=== PATIENT | female | born 1960 | race American Indian/Alaskan Native ===

== ENCOUNTER 2018-04-06 21:16 | Inpatient (IN) | payer MEDICARE ==
[2018-04-06] MEDS ORDERED: PROVENTIL IH ONE ×3 (21:38→21:50)
[2018-04-06] MEDS ORDERED: ATROVENT IH ONE (21:38)
[2018-04-06] MEDS ORDERED: LASIX IV ONE (21:52)
[2018-04-06] MEDS ORDERED: MAGNESIUM SULFATE 2GM/50ML 2 GM/50 ML BAG IV ONE (21:58)
--- NOTE | 2018-04-06 21:58 | Emergency Department Report ---
ED Shortness of Breath HPI - General Chief Complaint: Dyspnea/Respdistress Stated Complaint: TROUBLE BREATHING Time Seen by Provider: 04/06/18 21:45 Source: patient Mode of arrival: Ambulatory Limitations: No Limitations - History of Present Illness Initial Comments: Mrs. Fletcher is a 57-year-old female history of CHF, coronary artery disease status post 2 vessel CABG in right valve replacement. She also has a history of COPD and continued tobacco use. She has severe shortness of breath. According to triage oxygen saturation, she was 88% on room air with severe work of breathing. Denies any pain. She is not oxygen dependent. According to echocardiogram per EMR, ejection fraction 15% MD Complaint: shortness of breath -: days(s) (1) Severity: severe Known History Of: COPD, other (CHF) Context: other (continued tobacco use) Associated Symptoms: cough - Related Data Home Oxygen Therapy: No Previous Rx's Medication Instructions Recorded Last Taken Type Allopurinol [Zyloprim] 100 mg PO QDAY #30 tablet 01/04/18 Unknown Rx Arformoterol Nebu [Brovana Nebu] 15 mcg IH Q12HRT #1 ml 01/04/18 Unknown Rx Aspirin [Aspirin TAB] 325 mg PO QDAY #30 tablet 01/04/18 Unknown Rx Budesonide [Pulmicort Respules] 0.5 mg IH Q12HRT #1 nebu 01/04/18 Unknown Rx Digoxin [Lanoxin] 0.25 mg PO DAILY #30 tablet 01/04/18 Unknown Rx Furosemide [Lasix TAB] 40 mg PO BID #120 tablet 01/04/18 Unknown Rx Lisinopril [Zestril TAB] 2.5 mg PO QDAY #30 tablet 01/04/18 Unknown Rx Metoprolol [Lopressor TAB] 50 mg PO BID #60 tablet 01/04/18 Unknown Rx Potassium Chloride [K-Dur] 20 meq PO Q12H #30 tablet 01/04/18 Unknown Rx Prednisone [predniSONE 5 mg (6-Day 5 mg PO .TAPER #1 tab.ds.pk 01/04/18 Unknown Rx Pack, 21 Tabs)] ALBUTEROL Inhaler [ProAir HFA 2 puff IH QID PRN #2 can 01/06/18 Unknown Rx Inhaler] Allergies Allergy/AdvReac Type Severity Reaction Status Date / Time Penicillins Allergy Unknown Verified 03/22/14 02:56 ED Review of Systems ROS: Stated complaint: TROUBLE BREATHING Other details as noted in HPI Comment: All other systems reviewed and negative Constitutional: denies: fever, malaise Respiratory: cough Cardiovascular: denies: chest pain ED Past Medical Hx - Past Medical History Hx Hypertension: Yes (2002) Hx Heart Attack/AMI: Yes Hx Congestive Heart Failure: Yes Hx Asthma: No Hx COPD: Yes Hx HIV: Yes Additional medical history: Mitral Valve repair, Open Heart surgery 2 vessel, Defibrillator - Surgical History Hx Open Heart Surgery: Yes Hx Internal Defibrillator: Yes Hx Cholecystectomy: Yes Additional Surgical History: mitral valve repair, - Social History Smoking Status: Current Every Day Smoker - Medications Home Medications: Home Medications Medication Instructions Recorded Confirmed Last Taken Type Allopurinol [Zyloprim] 100 mg PO QDAY #30 tablet 01/04/18 Unknown Rx Arformoterol Nebu [Brovana Nebu] 15 mcg IH Q12HRT #1 ml 01/04/18 Unknown Rx Aspirin [Aspirin TAB] 325 mg PO QDAY #30 tablet 01/04/18 Unknown Rx Budesonide [Pulmicort Respules] 0.5 mg IH Q12HRT #1 nebu 01/04/18 Unknown Rx Digoxin [Lanoxin] 0.25 mg PO DAILY #30 tablet 01/04/18 Unknown Rx Furosemide [Lasix TAB] 40 mg PO BID #120 tablet 01/04/18 Unknown Rx Lisinopril [Zestril TAB] 2.5 mg PO QDAY #30 tablet 01/04/18 Unknown Rx Metoprolol [Lopressor TAB] 50 mg PO BID #60 tablet 01/04/18 Unknown Rx Potassium Chloride [K-Dur] 20 meq PO Q12H #30 tablet 01/04/18 Unknown Rx Prednisone [predniSONE 5 mg (6-Day 5 mg PO .TAPER #1 tab.ds.pk 01/04/18 Unknown Rx Pack, 21 Tabs)] ALBUTEROL Inhaler [ProAir HFA 2 puff IH QID PRN #2 can 01/06/18 Unknown Rx Inhaler] ED Physical Exam - General Limitations: No Limitations General appearance: alert, in distress, other (severe work of breathing) - Head Head exam: Present: atraumatic, normocephalic - Eye Eye exam: Present: normal appearance - ENT ENT exam: Present: normal exam - Neck Neck exam: Present: normal inspection. Absent: tenderness, meningismus - Respiratory Respiratory exam: Present: wheezes, accessory muscle use, decreased breath sounds, prolonged expiratory - Cardiovascular Cardiovascular Exam: Present: normal rhythm, tachycardia, normal heart sounds - GI/Abdominal GI/Abdominal exam: Present: soft. Absent: distended, tenderness, guarding, rebound - Extremities Exam Extremities exam: Present: normal inspection, full ROM. Absent: pedal edema - Neurological Exam Neurological exam: Present: alert, altered - Psychiatric Psychiatric exam: Present: normal affect, anxious - Skin Skin exam: Present: warm, dry, intact, normal color - Other Other exam information: Sternotomy scar present, AICD pack without tenderness or erythema surgical scar overlying ED Course Vital Signs 04/06/18 04/06/18 04/06/18 21:15 21:29 21:31 Temperature 98.0 F 98 F Pulse Rate 123 H 122 H 112 H Pulse Rate [ Anterior Bilateral Throughout] Respiratory 24 28 H 17 Rate Respiratory Rate [Anterior Bilateral Throughout] Blood Pressure 168/104 168/104 O2 Sat by Pulse 91 88 95 Oximetry 04/06/18 04/06/18 04/06/18 21:45 21:49 21:54 Temperature Pulse Rate 106 H Pulse Rate [ 105 H Anterior Bilateral Throughout] Respiratory 22 20 Rate Respiratory 25 H Rate [Anterior Bilateral Throughout] Blood Pressure O2 Sat by Pulse 97 Oximetry - Reevaluation(s) Reevaluation #1: 04/06/18 22:02 Patient required noninvasive positive pressure ventilation with BiPAP immediately upon arrival. I discussed care with nurse and respiratory therapist. I reviewed her electronic record. Reevaluation #2: 04/06/18 23:35 I reassessed Ms. Fletcher. She still had decreased breath sounds. Blood gas on room air revealed hypoxia and mild hypercapnia will continue BiPAP. ED Medical Decision Making - Lab Data Result diagrams: 04/06/18 22:09 04/06/18 22:09 - EKG Data 04/06/18 21:56 Sinus tachycardia rate of 100 abnormal axis positive LVH no significant ST elevation isolated ST abnormality in lead V6 - Medical Decision Making Ms. Fletcher presents with acute respiratory failure and acute hypoxia and chronic hypercapnia; suspect largest component due to COPD. Patient does have a history of CHF with minimal pulmonary edema seen on chest x-ray. Critical Care Time: Yes (45) Critical care attestation.: If time is entered above; I have spent that time in minutes in the direct care of this critically ill patient, excluding procedure time. ED Disposition Clinical Impression: Acute respiratory failure with hypoxia, COPD with acute exacerbation, CHF ( congestive heart failure) Disposition: OP ADMIT IP TO THIS HOSP Is pt being admited?: Yes Does the pt Need Aspirin: No Condition: Stable Time of Disposition: 23:37
[2018-04-06] MEDS ORDERED: ZOFRAN ONE (22:08)
[2018-04-06 22:23] LABS: Hematocrit 53.2 % (30.3-42.9); Hemoglobin 17.4 gm/dl (10.1-14.3); Mean Corpuscular HGB Conc 33 % (30-34); Mean Corpuscular Hemoglobin 31 pg (28-32); Mean Corpuscular Volume 95 fl (79-97); Platelet Count 215 K/mm3 (140-440); Red Blood Count 5.59 M/mm3 (3.65-5.03); Red Cell Distribution Width 15.5 % (13.2-15.2)
[2018-04-06 22:32] LABS: BUN/Creatinine Ratio 19; Blood Urea Nitrogen 17 mg/dL (7-17); Calcium 8.8 mg/dL (8.4-10.2); Hemolysis Index 109
--- NOTE | 2018-04-06 22:58 | XRay Report ---
FINAL REPORT EXAM: XR CHEST 1V AP HISTORY: Dyspnea TECHNIQUE: upright single view chest PRIORS: None. FINDINGS: Cardiac silhouette is enlarged.. No focal pulmonary infiltrate is identified. No pleural fluid collection seen. Pulmonary vasculature is unremarkable. Pacemaker is present. Lead wires are intact. Lungs are hyperinflated likely reflecting underlying COPD. There is a cardiac valve prosthesis present. IMPRESSION: Findings likely reflecting underlying COPD Cardiomegaly pacemaker/AICD Cardiac valve prosthesis
[2018-04-06] MEDS ORDERED: ZOFRAN IV ONE (23:03)
[2018-04-06 23:12] LABS: Basophils % (Manual) 0 % (0.0-1.8); Total Cells Counted 100
[2018-04-06] MEDS ORDERED: LEVAQUIN 750MG/150ML 750 MG/150 ML BAG IV ONE (23:37)
[2018-04-06] MEDS ORDERED: TYLENOL PO PRN (23:57)
[2018-04-06] MEDS ORDERED: SODIUM CHLORIDE FLUSH SYRINGE 10 ML IV PRN (23:57)
--- NOTE | 2018-04-06 23:57 | History and Physical Report ---
History of Present Illness Date of examination: 04/06/18 History of present illness: 57 year with history of hypertension, HIV, CHF, coronary artery disease, COPD comes emergency room with complaints of shortness of breath that started yesterday. also complained of PND, orthopnea. Review Of Systems: Constitutional: no weight loss Ears, eyes, nose, mouth and throat: no nasal congestion, no nasal discharge, no sinus pressure, blurry vision, diplopia Neck: No neck pain or rigidity. Cardiovascular: NO palpitations Respiratory:no cough Gastrointestinal: no abdominal pain, hematochezia Genitourinary : no dysuria, frequency , hematuria Musculoskeletal: no muscle ache Integumentary: no rash, no pruritis Neurological: no parathesias, focal weakness Endocrine: no cold or heat intolerance, no polyuria or polydipsia Hematologic/Lymphatic: no easy bruising, no easy bleeding, no gland swelling Allergic/Immunologic: no urticaria, no angioedema. PAST MEDICAL HISTORY:CAD, COPD, heart failure, HIV/AIDS, hypertension PAST SURGICAL HISTORY:CABG, Other mitral valve repair, AICD FAMILY HISTORY:CVA, HTN SOCIAL HISTORY:Smokes half a pack a day, alcohol and no drugs Medications and Allergies Allergies Allergy/AdvReac Type Severity Reaction Status Date / Time Penicillins Allergy Unknown Verified 03/22/14 02:56 Home Medications Medication Instructions Recorded Confirmed Last Taken Type Allopurinol [Zyloprim] 100 mg PO QDAY #30 tablet 01/04/18 Unknown Rx Arformoterol Nebu [Brovana Nebu] 15 mcg IH Q12HRT #1 ml 01/04/18 Unknown Rx Aspirin [Aspirin TAB] 325 mg PO QDAY #30 tablet 01/04/18 Unknown Rx Budesonide [Pulmicort Respules] 0.5 mg IH Q12HRT #1 nebu 01/04/18 Unknown Rx Digoxin [Lanoxin] 0.25 mg PO DAILY #30 tablet 01/04/18 Unknown Rx Furosemide [Lasix TAB] 40 mg PO BID #120 tablet 01/04/18 Unknown Rx Lisinopril [Zestril TAB] 2.5 mg PO QDAY #30 tablet 01/04/18 Unknown Rx Metoprolol [Lopressor TAB] 50 mg PO BID #60 tablet 01/04/18 Unknown Rx Potassium Chloride [K-Dur] 20 meq PO Q12H #30 tablet 01/04/18 Unknown Rx Prednisone [predniSONE 5 mg (6-Day 5 mg PO .TAPER #1 tab.ds.pk 01/04/18 Unknown Rx Pack, 21 Tabs)] ALBUTEROL Inhaler [ProAir HFA 2 puff IH QID PRN #2 can 01/06/18 Unknown Rx Inhaler] Active Meds: Active Medications Levofloxacin/Dextrose (Levaquin 750mg/150ml) 750 mg in 150 mls @ 100 mls/hr IV ONCE ONE Stop: 04/07/18 01:06 Exam - Physical Exam Narrative exam: Gen. appearance: Patient lying in bed, no apparent distress HEENT: Normocephalic, atraumatic, pupils equally round and reactive to light, extraocular movement intact, and no sclericterus,. No JVD or thyromegaly or nodule,neck supple, no carotid bruit ,mucous membranes moist, no exudate or erythema Heart: S1, S2, regular rate and rhythm Lungs: Crackles bilaterally, breathing comfortable Abdomen: Positive bowel sounds, nontender, nondistended, no organomegaly Extremity: No edema, cyanosis, clubbing Skin: No rash, nodules, warm, dry Neuro: Oriented 3, cranial nerves II-12 intact, speech is fluent, motor and sensory intact - Constitutional Vitals: Temp Pulse Resp BP Pulse Ox 98 F 98 H 22 168/104 93 04/06/18 21:29 04/06/18 22:59 04/06/18 22:59 04/06/18 21:29 04/06/18 22:59 Results - Labs CBC & Chem 7: 04/06/18 22:09 04/06/18 22:09 Labs: Abnormal lab results 04/06/18 04/06/18 04/06/18 Range/Units 22:09 22:09 23:22 RBC 5.59 H (3.65-5.03) M/mm3 Hgb 17.4 H (10.1-14.3) gm/dl Hct 53.2 H (30.3-42.9) % RDW 15.5 H (13.2-15.2) % Seg Neuts % (Manual) 33.0 L (40.0-70.0) % Lymphocytes % (Manual) 59.0 H (13.4-35.0) % POC ABG pCO2 (35-45) POC ABG pO2 (80-105) Potassium 3.1 L (3.6-5.0) mmol/L Chloride 95.4 L (98-107) mmol/L Glucose 129 H (65-100) mg/dL NT-Pro-B Natriuret Pep 2989 H (0-900) pg/mL 04/06/18 Range/Units 23:36 RBC (3.65-5.03) M/mm3 Hgb (10.1-14.3) gm/dl Hct (30.3-42.9) % RDW (13.2-15.2) % Seg Neuts % (Manual) (40.0-70.0) % Lymphocytes % (Manual) (13.4-35.0) % POC ABG pCO2 52.5 H (35-45) POC ABG pO2 51 L (80-105) Potassium (3.6-5.0) mmol/L Chloride (98-107) mmol/L Glucose (65-100) mg/dL NT-Pro-B Natriuret Pep (0-900) pg/mL - Imaging and Cardiology EKG: image reviewed Chest x-ray: image reviewed Assessment and Plan Assessment Acute on chronic systolic heart failure COPD exacerbation Coronary artery disease Hypertension Hiv Plan Admit to medicine Diurese with IV Lasix Start BB, SAL inhibitor, aspirin Check enzymes, echo, consult cardiology Monitor I's and O's, daily weight Start high-dose steroids, nebulized treatments Continue appropriate outpatient medications DVT prophylaxis
[2018-04-07] MEDS ORDERED: PERCOCET 5/325 ONE (00:41)
[2018-04-07] MEDS: PERCOCET 5/325 PO PRN ×4 (01:11→22:38)
[2018-04-07] MEDS: DUONEB *Not for PRN Use IH SCH ×4 (03:06→20:13)
[2018-04-07 06:05] LABS: Basophils % (Auto) 0.3 % (0.0-1.8); Eosinophils % (Auto) 0.1 % (0.0-4.3); Hematocrit 47.9 % (30.3-42.9); Hemoglobin 15.4 gm/dl (10.1-14.3); Lymphocytes # (Auto) 0.6 K/mm3 (1.2-5.4); Lymphocytes % (Auto) 12.6 % (13.4-35.0); Mean Corpuscular HGB Conc 32 % (30-34); Mean Corpuscular Hemoglobin 31 pg (28-32); Mean Corpuscular Volume 96 fl (79-97); Monocytes # (Auto) 0.1 K/mm3 (0.0-0.8); Monocytes % (Auto) 1.2 % (0.0-7.3); Platelet Count 191 K/mm3 (140-440); Red Blood Count 4.97 M/mm3 (3.65-5.03); Red Cell Distribution Width 15.8 % (13.2-15.2)
[2018-04-07] MEDS: LASIX IV SCH ×2 (06:14→17:25)
[2018-04-07 06:25] LABS: Calcium 9.3 mg/dL (8.4-10.2)
[2018-04-07] MEDS: BROVANA NEBU IH SCH ×2 (08:45→20:12)
[2018-04-07] MEDS: PULMICORT IH SCH ×2 (08:45→20:13)
[2018-04-07] MEDS: ZYLOPRIM PO SCH (09:31)
[2018-04-07] MEDS: ASPIRIN PO SCH (09:31)
[2018-04-07] MEDS: LOVENOX SUB-Q SCH (09:31)
[2018-04-07] MEDS: LOPRESSOR PO SCH ×2 (09:32→22:39)
[2018-04-07] MEDS: SODIUM CHLORIDE FLUSH SYRINGE 10 ML IV SCH ×2 (09:33→22:40)
[2018-04-07] MEDS ORDERED: ZESTRIL PO SCH (10:00)
[2018-04-07] MEDS ORDERED: LOVENOX SUB-Q SCH (10:00)
[2018-04-07] MEDS ORDERED: K-DUR PO SCH (11:08)
--- NOTE | 2018-04-07 12:18 | Consultation ---
History of Present Illness Consult date: 04/07/18 Consult reason: congestive heart failure History of present illness: This is a 57yr old woman with a history of HIV disease, ischemic cardiomyopathy and CAD s/p CABG and mitral valve repair at [facility] in 2002. In addition, she has a Biventricular ICD in situ. In 2016, patient underwent RV ICD lead revision (implanted new lead and abandoned previous lead) and BiVentricular ICD generator replacement. Latest echocardiogram documents severe dilated cardiomyopathy, bioprosthetic mitral valve/mitral valve repair with at least moderate regurgitation. Ejection fraction 10-15%. Patient presented to this hospital with shortness of breath admitted with acute hypoxic respiratory failure. It's reported oxygen sats of 88% on presentation. In addition, patient reports she continues to smoke. A cardiac consultation was requested for CHF management. Patient admits to noncompliance with dietary and fluid restrictions. She denies chest pain. There is no lower extremity edema. Chest x-ray documents cardiomegaly with interstitial edema and underlying COPD. EKG is a ventricular paced rhythm. Medications and Allergies Allergies Allergy/AdvReac Type Severity Reaction Status Date / Time Penicillins Allergy Unknown Verified 03/22/14 02:56 Home Medications Medication Instructions Recorded Confirmed Last Taken Type Allopurinol [Zyloprim] 100 mg PO QDAY #30 tablet 01/04/18 04/07/18 Unknown Rx Arformoterol Nebu [Brovana Nebu] 15 mcg IH Q12HRT #1 ml 01/04/18 04/07/18 Unknown Rx Aspirin [Aspirin TAB] 325 mg PO QDAY #30 tablet 01/04/18 04/07/18 Unknown Rx Budesonide [Pulmicort Respules] 0.5 mg IH Q12HRT #1 nebu 01/04/18 04/07/18 Unknown Rx Digoxin [Lanoxin] 0.25 mg PO DAILY #30 tablet 01/04/18 04/07/18 Unknown Rx Furosemide [Lasix TAB] 40 mg PO BID #120 tablet 01/04/18 04/07/18 Unknown Rx Lisinopril [Zestril TAB] 2.5 mg PO QDAY #30 tablet 01/04/18 04/07/18 Unknown Rx Metoprolol [Lopressor TAB] 50 mg PO BID #60 tablet 01/04/18 04/07/18 Unknown Rx Potassium Chloride [K-Dur] 20 meq PO Q12H #30 tablet 01/04/18 04/07/18 Unknown Rx ALBUTEROL Inhaler [ProAir HFA 2 puff IH QID PRN #2 can 01/06/18 04/07/18 Unknown Rx Inhaler] Active Meds: Active Medications Acetaminophen (Tylenol) 650 mg PO Q4H PRN PRN Reason: Pain MILD(1-3)/Fever >100.5/CALDERON Albuterol/Ipratropium (Duoneb *Not For Prn Use*) 1 ampul IH Q6HRT [facility] Last Admin: 04/07/18 08:45 Dose: 1 ampul Allopurinol (Zyloprim) 100 mg PO QDAY [facility] Last Admin: 04/07/18 09:31 Dose: 100 mg Arformoterol Tartrate (Brovana Nebu) 15 mcg IH Q12HRT [facility] Last Admin: 04/07/18 08:45 Dose: 15 mcg Aspirin (Aspirin) 325 mg PO QDAY [facility] Last Admin: 04/07/18 09:31 Dose: 325 mg Budesonide (Pulmicort) 0.5 mg IH Q12HRT [facility] Last Admin: 04/07/18 08:45 Dose: 0.5 mg Digoxin (Lanoxin) 0.25 mg PO DAILY@1700 [facility] Enoxaparin Sodium (Lovenox) 40 mg SUB-Q QDAY@1000 [facility] Last Admin: 04/07/18 09:31 Dose: 40 mg Furosemide (Lasix) 40 mg IV BID@0600,1800 [facility] Last Admin: 04/07/18 06:14 Dose: 40 mg Lisinopril (Zestril) 2.5 mg PO QDAY [facility] Last Admin: 04/07/18 09:33 Dose: 2.5 mg Methylprednisolone Sodium Succinate (Solu-Medrol) 80 mg IV Q6HR [facility] Metoprolol Tartrate (Lopressor) 50 mg PO BID [facility] Last Admin: 04/07/18 09:32 Dose: Not Given Ondansetron HCl (Zofran) 4 mg IV Q8H PRN PRN Reason: Nausea And Vomiting Oxycodone/Acetaminophen (Percocet 5/325) 1 tab PO Q4H PRN PRN Reason: Pain, Moderate (4-6) Last Admin: 04/07/18 06:23 Dose: 1 tab Potassium Chloride (K-Dur) 40 meq PO ONCE MELLY Stop: 04/07/18 18:00 Sodium Chloride (Sodium Chloride Flush Syringe 10 Ml) 10 ml IV BID MELLY Last Admin: 04/07/18 09:33 Dose: 10 ml Sodium Chloride (Sodium Chloride Flush Syringe 10 Ml) 10 ml IV PRN PRN PRN Reason: LINE FLUSH Physical Examination Vital Signs Temp Pulse Resp BP Pulse Ox 98.0 F 123 H 24 168/104 91 04/06/18 21:15 04/06/18 21:15 04/06/18 21:15 04/06/18 21:15 04/06/18 21:15 General appearance: no acute distress HEENT: Positive: PERRL Cardiac: Positive: Other (Vpaced) Lungs: Positive: Decreased Breath Sounds Neuro: Positive: Grossly Intact Extremities: Absent: edema Results 04/07/18 04:59 04/07/18 04:59 CBC 04/06/18 04/07/18 Range/Units 22:09 04:59 WBC 6.6 4.5 (4.5-11.0) K/mm3 RBC 5.59 H 4.97 (3.65-5.03) M/mm3 Hgb 17.4 H 15.4 H (10.1-14.3) gm/dl Hct 53.2 H 47.9 H (30.3-42.9) % Plt Count 215 191 (140-440) K/mm3 Lymph # 0.6 L (1.2-5.4) K/mm3 [place] # 0.1 (0.0-0.8) K/mm3 Eos # 0.0 (0.0-0.4) K/mm3 Baso # 0.0 (0.0-0.1) K/mm3 Comprehensive Metabolic Panel 04/06/18 04/07/18 Range/Units 22:09 04:59 Sodium 141 139 (137-145) mmol/L Potassium 3.1 L 3.0 L (3.6-5.0) mmol/L Chloride 95.4 L 93.2 L (98-107) mmol/L Carbon Dioxide 30 32 H (22-30) mmol/L BUN 17 21 H (7-17) mg/dL Creatinine 0.9 1.3 H (0.7-1.2) mg/dL Glucose 129 H 215 H (65-100) mg/dL Calcium 8.8 9.3 (8.4-10.2) mg/dL Assessment and Plan Acute systolic heart failure s/t noncompliance with dietary/fluid restrictions. BiVentricular ICD s/p RV ICD lead revision (implanted new lead and abandoned previous lead) and BiVentricular ICD generator replacement 01/2016. Dilated Ischemic Cardiomyopathy recent echo reports a severe dilated cardiomyopathy, bioprosthetic mitral valve/mitral valve repair with at least moderate regurgitation. Ejection fraction 10-15% Hx of CAD s/p 2 way CABG s/p Mitral valve repair in 2002 HIV disease Hypertension Tobacco abuse Recommendations: Continue medical therapy for heart failure and coronary artery disease. Advised fluid/sodium restrictions. Advised smoking cessation.
[2018-04-07] MEDS: ZOFRAN IV PRN ×2 (14:26→22:37)
--- NOTE | 2018-04-07 15:57 | Progress Note ---
Assessment and Plan Assessment and plan: 57 year with history of hypertension, HIV, CHF, coronary artery disease, COPD comes emergency room with complaints of shortness of breath that started yesterday, Also complained of PND, orthopnea. Acute on chronic systolic heart failure COPD with acute exacerbation Acute Hypoxic Respiratory failure Coronary artery disease Hypokalemia Tobacco use disorder YANELY secondary to vasomotor nephropathy Hypertension Hiv Plan Supportive care Pulmonary Consult Await cardiology input Continue Diurese with IV Lasix 15 Mins counselling to quit tobacco use. Patient verbalized understanding. Monitor renal function Replace K Continue BB, SAL inhibitor, aspirin Check enzymes, echo, Monitor I's and O's, daily weight Start high-dose steroids and taper, nebulized treatments Continue appropriate outpatient medications DVT prophylaxis History Interval history: Patient seen and examined, still in mild respiratory distress, requiring oxygen. No chest pain, Nausea, vomiting or diarrhea. Hospitalist Physical - Physical exam Narrative exam: VITAL SIGNS: Reviewed. GENERAL: The patient appeared well nourished and normally developed. Vital signs as documented. HEAD: No signs of head trauma. EYES: Pupils are equal. Extraocular motions intact. EARS: Hearing grossly intact. MOUTH: Oropharynx is normal. NECK: No adenopathy, no JVD. CHEST: Chest with Diminished breath sounds bilaterally. No wheezes, rales, or rhonchi. CARDIAC: Regular rate and rhythm. S1 and S2, without murmurs, gallops, or rubs. VASCULAR: No Edema. Peripheral pulses normal and equal in all extremities. ABDOMEN: Soft, without detectable tenderness. No sign of distention. No rebound or guarding, and no masses palpated. Bowel Sounds normal. MUSCULOSKELETAL: Good range of motion of all major joints. Extremities without clubbing, cyanosis or edema. NEUROLOGIC EXAM: Alert and oriented x 3. No focal sensory or strength deficits. Follows commands. PSYCHIATRIC: Mood Anxious SKIN: No rash or lesions. - Constitutional Vitals: Temp Pulse Resp BP Pulse Ox 97.6 F 88 18 110/68 96 04/07/18 15:33 04/07/18 15:33 04/07/18 15:33 04/07/18 15:33 04/07/18 15:33 General appearance: Present: no acute distress Results - Labs CBC & Chem 7: 04/07/18 04:59 04/07/18 04:59 Labs: Laboratory Last Values WBC 4.5 K/mm3 (4.5-11.0) 04/07/18 04:59 RBC 4.97 M/mm3 (3.65-5.03) 04/07/18 04:59 Hgb 15.4 gm/dl (10.1-14.3) H 04/07/18 04:59 Hct 47.9 % (30.3-42.9) H 04/07/18 04:59 MCV 96 fl (79-97) 04/07/18 04:59 MCH 31 pg (28-32) 04/07/18 04:59 MCHC 32 % (30-34) 04/07/18 04:59 RDW 15.8 % (13.2-15.2) H 04/07/18 04:59 Plt Count 191 K/mm3 (140-440) 04/07/18 04:59 Lymph % (Auto) 12.6 % (13.4-35.0) L 04/07/18 04:59 [place]eman % (Auto) 1.2 % (0.0-7.3) 04/07/18 04:59 Eos % (Auto) 0.1 % (0.0-4.3) 04/07/18 04:59 Baso % (Auto) 0.3 % (0.0-1.8) 04/07/18 04:59 Lymph # 0.6 K/mm3 (1.2-5.4) L 04/07/18 04:59 Hodgeman # 0.1 K/mm3 (0.0-0.8) 04/07/18 04:59 Eos # 0.0 K/mm3 (0.0-0.4) 04/07/18 04:59 Baso # 0.0 K/mm3 (0.0-0.1) 04/07/18 04:59 Add Manual Diff Complete 04/06/18 22:09 Total Counted 100 04/06/18 22:09 Seg Neutrophils % 85.8 % (40.0-70.0) H 04/07/18 04:59 Seg Neuts % (Manual) 33.0 % (40.0-70.0) L 04/06/18 22:09 Band Neutrophils % 0 % 04/06/18 22:09 Lymphocytes % (Manual) 59.0 % (13.4-35.0) H 04/06/18 22:09 Reactive Lymphs % (Man) 0 % 04/06/18 22:09 Monocytes % (Manual) 4.0 % (0.0-7.3) 04/06/18 22:09 Eosinophils % (Manual) 4.0 % (0.0-4.3) 04/06/18 22:09 Basophils % (Manual) 0 % (0.0-1.8) 04/06/18 22:09 Metamyelocytes % 0 % 04/06/18 22:09 Myelocytes % 0 % 04/06/18 22:09 Promyelocytes % 0 % 04/06/18 22:09 Blast Cells % 0 % 04/06/18 22:09 Nucleated RBC % Not Reportable 04/06/18 22:09 Seg Neutrophils # 3.8 K/mm3 (1.8-7.7) 04/07/18 04:59 Seg Neutrophils # Man 2.2 K/mm3 (1.8-7.7) 04/06/18 22:09 Band Neutrophils # 0.0 K/mm3 04/06/18 22:09 Lymphocytes # (Manual) 3.9 K/mm3 (1.2-5.4) 04/06/18 22:09 Abs React Lymphs (Man) 0.0 K/mm3 04/06/18 22:09 Monocytes # (Manual) 0.3 K/mm3 (0.0-0.8) 04/06/18 22:09 Eosinophils # (Manual) 0.3 K/mm3 (0.0-0.4) 04/06/18 22:09 Basophils # (Manual) 0.0 K/mm3 (0.0-0.1) 04/06/18 22:09 Metamyelocytes # 0.0 K/mm3 04/06/18 22:09 Myelocytes # 0.0 K/mm3 04/06/18 22:09 Promyelocytes # 0.0 K/mm3 04/06/18 22:09 Blast Cells # 0.0 K/mm3 04/06/18 22:09 WBC Morphology Not Reportable 04/06/18 22:09 Hypersegmented Neuts Not Reportable 04/06/18 22:09 Hyposegmented Neuts Not Reportable 04/06/18 22:09 Hypogranular Neuts Not Reportable 04/06/18 22:09 Smudge Cells Not Reportable 04/06/18 22:09 Toxic Granulation Not Reportable 04/06/18 22:09 Toxic Vacuolation Not Reportable 04/06/18 22:09 Dohle Bodies Not Reportable 04/06/18 22:09 Pelger-Huet Anomaly Not Reportable 04/06/18 22:09 Teivn Rods Not Reportable 04/06/18 22:09 Platelet Estimate Appears normal 04/06/18 22:09 Clumped Platelets Not Reportable 04/06/18 22:09 Plt Clumps, EDTA Not Reportable 04/06/18 22:09 Large Platelets Not Reportable 04/06/18 22:09 Giant Platelets Not Reportable 04/06/18 22:09 Platelet Satelliting Not Reportable 04/06/18 22:09 Plt Morphology Comment Not Reportable 04/06/18 22:09 RBC Morphology Not Reportable 04/06/18 22:09 Dimorphic RBCs Not Reportable 04/06/18 22:09 Polychromasia Not Reportable 04/06/18 22:09 Hypochromasia Not Reportable 04/06/18 22:09 Poikilocytosis Not Reportable 04/06/18 22:09 Anisocytosis Not Reportable 04/06/18 22:09 Microcytosis Not Reportable 04/06/18 22:09 Macrocytosis Not Reportable 04/06/18 22:09 Spherocytes Not Reportable 04/06/18 22:09 Pappenheimer Bodies Not Reportable 04/06/18 22:09 Sickle Cells Not Reportable 04/06/18 22:09 Target Cells Not Reportable 04/06/18 22:09 Tear Drop Cells Not Reportable 04/06/18 22:09 Ovalocytes Not Reportable 04/06/18 22:09 Helmet Cells Not Reportable 04/06/18 22:09 [place] Bodies Not Reportable 04/06/18 22:09 [place] Rings Not Reportable 04/06/18 22:09 Ale Cells Not Reportable 04/06/18 22:09 Bite Cells Not Reportable 04/06/18 22:09 Crenated Cell Not Reportable 04/06/18 22:09 Elliptocytes Not Reportable 04/06/18 22:09 Acanthocytes (Spur) Not Reportable 04/06/18 22:09 Rouleaux Not Reportable 04/06/18 22:09 Hemoglobin C Crystals Not Reportable 04/06/18 22:09 Schistocytes Not Reportable 04/06/18 22:09 Malaria parasites Not Reportable 04/06/18 22:09 Aron Bodies Not Reportable 04/06/18 22:09 Hem Pathologist Commnt No 04/06/18 22:09 POC ABG pH 7.438 (7.35-7.45) 04/06/18 23:36 POC ABG pCO2 52.5 (35-45) H 04/06/18 23:36 POC ABG pO2 51 (80-105) L 04/06/18 23:36 POC ABG HCO3 35.5 04/06/18 23:36 POC ABG Total CO2 37 04/06/18 23:36 POC ABG O2 Sat 86 04/06/18 23:36 POC ABG Base Excess 11 04/06/18 23:36 FiO2 21 % 04/06/18 23:36 Sodium 139 mmol/L (137-145) 04/07/18 04:59 Potassium 3.0 mmol/L (3.6-5.0) L 04/07/18 04:59 Chloride 93.2 mmol/L (98-107) L 04/07/18 04:59 Carbon Dioxide 32 mmol/L (22-30) H 04/07/18 04:59 Anion Gap 17 mmol/L 04/07/18 04:59 BUN 21 mg/dL (7-17) H 04/07/18 04:59 Creatinine 1.3 mg/dL (0.7-1.2) H 04/07/18 04:59 Estimated GFR 51 ml/min 04/07/18 04:59 BUN/Creatinine Ratio 16 % 04/07/18 04:59 Glucose 215 mg/dL (65-100) H 04/07/18 04:59 Calcium 9.3 mg/dL (8.4-10.2) 04/07/18 04:59 Troponin T 0.027 ng/mL (0.00-0.029) 04/06/18 22:09 NT-Pro-B Natriuret Pep 2989 pg/mL (0-900) H 04/06/18 23:22 - Imaging and Cardiology Chest x-ray: image reviewed (COPD)
[2018-04-07] MEDS: LANOXIN PO SCH (17:24)
[2018-04-07] MEDS: MILRINONE-D5W 20 MG/100 ML 20 MG/100 ML BAG IV SCH (18:08)
--- NOTE | 2018-04-07 19:03 | Consultation ---
History of Present Illness Consult date: 04/07/18 Reason for consult: COPD History of present illness: PULMONARY CONSULTATION DR. RAGLAND THANK YOU FOR ASKING US TO PARTICIPATE IN THE CARE OF THIS PATIENT. This is 57 yearold female history of COPD, CAD,Hypertension CHF, HIV.AIDS came to the emergency room with shortness of breath.Also complained paroxysmal nocturnal dyspnea and orthopnea.Denied chest pain.Patient has history of defibrillator implantation.Patient complained dry cough.Patient has history of smoking 1/2 a pack a day for more than 30 years. Still smoking. Counselled to stop smoking.Denies alcohol or drug abuse. Worked in [employer] and [employer] before retired. and has 2 children.Patient allergic to pencillin and also has some food allergies. Past History Past Medical History: CAD, COPD, HIV/AIDS, hypertension Past Surgical History: Other (Defbrillator implantation.) Medications and Allergies Allergies Allergy/AdvReac Type Severity Reaction Status Date / Time Penicillins Allergy Unknown Verified 03/22/14 02:56 Home Medications Medication Instructions Recorded Confirmed Last Taken Type Allopurinol [Zyloprim] 100 mg PO QDAY #30 tablet 01/04/18 04/07/18 Unknown Rx Arformoterol Nebu [Brovana Nebu] 15 mcg IH Q12HRT #1 ml 01/04/18 04/07/18 Unknown Rx Aspirin [Aspirin TAB] 325 mg PO QDAY #30 tablet 01/04/18 04/07/18 Unknown Rx Budesonide [Pulmicort Respules] 0.5 mg IH Q12HRT #1 nebu 01/04/18 04/07/18 Unknown Rx Digoxin [Lanoxin] 0.25 mg PO DAILY #30 tablet 01/04/18 04/07/18 Unknown Rx Furosemide [Lasix TAB] 40 mg PO BID #120 tablet 01/04/18 04/07/18 Unknown Rx Lisinopril [Zestril TAB] 2.5 mg PO QDAY #30 tablet 01/04/18 04/07/18 Unknown Rx Metoprolol [Lopressor TAB] 50 mg PO BID #60 tablet 01/04/18 04/07/18 Unknown Rx Potassium Chloride [K-Dur] 20 meq PO Q12H #30 tablet 01/04/18 04/07/18 Unknown Rx ALBUTEROL Inhaler [ProAir HFA 2 puff IH QID PRN #2 can 01/06/18 04/07/18 Unknown Rx Inhaler] Active Meds: Active Medications Acetaminophen (Tylenol) 650 mg PO Q4H PRN PRN Reason: Pain MILD(1-3)/Fever >100.5/[place]DER[place] Albuterol/Ipratropium (Duoneb *Not For Prn Use*) 1 ampul IH Q6HRT [facility] Last Admin: 04/07/18 14:41 Dose: 1 ampul Allopurinol (Zyloprim) 100 mg PO QDAY [facility] Last Admin: 04/07/18 09:31 Dose: 100 mg Arformoterol Tartrate (Brovana Nebu) 15 mcg IH Q12HRT [facility] Last Admin: 04/07/18 08:45 Dose: 15 mcg Aspirin (Aspirin) 325 mg PO QDAY [facility] Last Admin: 04/07/18 09:31 Dose: 325 mg Budesonide (Pulmicort) 0.5 mg IH Q12HRT [facility] Last Admin: 04/07/18 08:45 Dose: 0.5 mg Digoxin (Lanoxin) 0.25 mg PO DAILY@1700 [facility] Last Admin: 04/07/18 17:24 Dose: 0.25 mg Enoxaparin Sodium (Lovenox) 40 mg SUB-Q QDAY@1000 [facility] Last Admin: 04/07/18 09:31 Dose: 40 mg Furosemide (Lasix) 40 mg IV BID@0600,1800 [facility] Last Admin: 04/07/18 17:25 Dose: 40 mg Milrinone Lactate/Dextrose (Milrinone-D5w 20 Mg/100 Ml) 20 mg in 100 mls @ 9.146 mls/hr IV TITR [facility] Stop: 04/09/18 16:59 Last Admin: 04/07/18 18:08 Dose: 0.375 mcg/kg/min, 9.146 mls/hr Lisinopril (Zestril) 2.5 mg PO QDAY [facility] Last Admin: 04/07/18 09:33 Dose: 2.5 mg Methylprednisolone Sodium Succinate (Solu-Medrol) 40 mg IV Q6H [facility] Metoprolol Tartrate (Lopressor) 50 mg PO BID [facility] Last Admin: 04/07/18 09:32 Dose: Not Given Ondansetron HCl (Zofran) 4 mg IV Q8H PRN PRN Reason: Nausea And Vomiting Last Admin: 04/07/18 14:26 Dose: 4 mg Oxycodone/Acetaminophen (Percocet 5/325) 1 tab PO Q4H PRN PRN Reason: Pain, Moderate (4-6) Last Admin: 04/07/18 14:27 Dose: 1 tab Sodium Chloride (Sodium Chloride Flush Syringe 10 Ml) 10 ml IV BID [facility] Last Admin: 04/07/18 09:33 Dose: 10 ml Sodium Chloride (Sodium Chloride Flush Syringe 10 Ml) 10 ml IV PRN PRN PRN Reason: LINE FLUSH Review of Systems All systems: negative Physical Examination Vital signs: Vital Signs Temp Pulse Resp BP Pulse Ox 98.0 F 123 H 24 168/104 91 04/06/18 21:15 04/06/18 21:15 04/06/18 21:15 04/06/18 21:15 04/06/18 21:15 General appearance: no acute distress, alert Eyes: non-icteric ENT: oropharynx moist Neck: supple, no JVD Effort: mildly labored Ascultation: Bilateral: diminished breath sounds (Prolonged expiratory phase.) Cardiovascular: regular rate and rhythm Gastrointestinal: normoactive bowel sounds, soft, non-tender Integumentary: normal Extremities: no cyanosis, no edema Musculoskeletal: no deformities Gait: normal gait normal mental status, non-focal exam, pupils equal and round, CN II-XII normal mood appropriate Results - Laboratory Findings CBC and BMP: 04/07/18 04:59 04/07/18 04:59 ABG POC ABG pH 7.438 (7.35-7.45) 04/06/18 23:36 POC ABG pCO2 52.5 (35-45) H 04/06/18 23:36 POC ABG pO2 51 (80-105) L 04/06/18 23:36 POC ABG HCO3 35.5 04/06/18 23:36 POC ABG Total CO2 37 04/06/18 23:36 POC ABG O2 Sat 86 04/06/18 23:36 Abnormal lab findings: Abnormal Labs 04/06/18 04/06/18 04/06/18 22:09 22:09 23:22 RBC 5.59 H Hgb 17.4 H Hct 53.2 H RDW 15.5 H Lymph % (Auto) Lymph # Seg Neutrophils % Seg Neuts % (Manual) 33.0 L Lymphocytes % (Manual) 59.0 H POC ABG pCO2 POC ABG pO2 Potassium 3.1 L Chloride 95.4 L Carbon Dioxide BUN Creatinine Glucose 129 H NT-Pro-B Natriuret Pep 2989 H 04/06/18 04/07/18 04/07/18 23:36 04:59 04:59 RBC Hgb 15.4 H Hct 47.9 H RDW 15.8 H Lymph % (Auto) 12.6 L Lymph # 0.6 L Seg Neutrophils % 85.8 H Seg Neuts % (Manual) Lymphocytes % (Manual) POC ABG pCO2 52.5 H POC ABG pO2 51 L Potassium 3.0 L Chloride 93.2 L Carbon Dioxide 32 H BUN 21 H Creatinine 1.3 H Glucose 215 H NT-Pro-B Natriuret Pep - Diagnostic Findings Chest x-ray: report reviewed (Changes reflects COPD, cardiomegaly, pace maker implantation), image reviewed Assessment and Plan This is 57 yearold female history of COPD, CAD,Hypertension CHF, HIV.AIDS came to the emergency room with shortness of breath.Also complained paroxysmal nocturnal dyspnea and orthopnea.Denied chest pain.Patient has history of defibrillator implantation.Patient complained dry cough.Patient has history of smoking 1/2 a pack a day for more than 30 years. Still smoking. Counselled to stop smoking.Denies alcohol or drug abuse. Worked in [employer] and [employer] before retired. and has 2 children.Patient allergic to pencillin and also has some food allergies. - Patient Problems (1) Acute respiratory failure with hypoxia Current Visit: Yes Status: Acute Plan to address problem: O2 3 litres via nasal canula. Albuterol/atrovent aerosol treatments q6 hours. Continue I/V solumedrol. Continue S/C Lovenox/ Recommend Famotadine once nausea subsides. (2) CHF (congestive heart failure) Current Visit: Yes Status: Acute Plan to address problem: Management as per primary care and cardiology. (3) COPD with acute exacerbation Current Visit: Yes Status: Acute Plan to address problem: O2 3 litres via nasal canula. Albuterol/atrovent aerosol treatments q6 hours. Continue I/V solumedrol. Continue S/C Lovenox/ Recommend Famotadine once nausea subsides. Counselled to stop smoking. Continue Levaquin. (4) AICD (automatic cardioverter/defibrillator) present Current Visit: No Status: Acute Plan to address problem: Management as per cardiology (5) HIV (human immunodeficiency virus infection) Current Visit: No Status: Chronic Plan to address problem: Recommend to consult infectious diseases.
[2018-04-08] MEDS: HABITROL TD SCH ×2 (02:01→10:00)
[2018-04-08] MEDS: DUONEB *Not for PRN Use IH SCH ×4 (02:21→20:57)
[2018-04-08] MEDS: MILRINONE-D5W 20 MG/100 ML 20 MG/100 ML BAG IV SCH (02:35)
[2018-04-08] MEDS: LASIX IV SCH (05:26)
[2018-04-08 05:38] LABS: Calcium 9.7 mg/dL (8.4-10.2)
[2018-04-08] MEDS ORDERED: NACL 0.9% 500 ML 500 ML IV NR (09:13)
[2018-04-08] MEDS: ZYLOPRIM PO SCH (09:30)
--- NOTE | 2018-04-08 09:37 | Progress Note ---
Assessment and Plan Acute systolic heart failure s/t noncompliance with dietary/fluid restrictions. BiVentricular ICD s/p RV ICD lead revision (implanted new lead and abandoned previous lead) and BiVentricular ICD generator replacement 01/2016. Dilated Ischemic Cardiomyopathy recent echo reports a severe dilated cardiomyopathy, bioprosthetic mitral valve/mitral valve repair with at least moderate regurgitation. Ejection fraction 10-15% Hx of CAD s/p 2 way CABG s/p Mitral valve repair in 2002 HIV disease Hypertension Tobacco abuse Recommendations: Continue medical therapy for heart failure and coronary artery disease as tolerated. Fluid/sodium restriction. Advised smoking cessation. Subjective Date of service: 04/08/18 Interval history: Patient is resting in bed comfortably. IV milrinone held due to reports of low blood pressure. No reported events on telemetry monitoring. Objective Vital Signs Temp Pulse Pulse Resp Resp BP BP 04/08/18 07:25 97.5 F L 78 18 95/38 04/08/18 06:30 97.5 F L 78 16 85/39 04/08/18 03:45 93 H 16 96/39 04/08/18 02:00 89 04/08/18 00:06 97.6 F 20 87/42 04/08/18 00:03 97.6 F 46 L 20 04/08/18 00:01 93.0 F L 91 H 22 04/07/18 22:39 95 H 88/54 04/07/18 22:00 04/07/18 20:25 93 H 20 04/07/18 20:16 04/07/18 20:15 67 20 04/07/18 20:09 97.4 F L 94 H 20 88/54 04/07/18 17:24 90 04/07/18 15:33 97.6 F 88 18 110/68 04/07/18 14:58 84 21 04/07/18 14:43 82 19 04/07/18 11:35 97.6 F 80 18 123/76 04/07/18 10:00 Pulse Ox 04/08/18 07:25 95 04/08/18 06:30 96 04/08/18 03:45 04/08/18 02:00 04/08/18 00:06 04/08/18 00:03 95 04/08/18 00:01 95 04/07/18 22:39 05/17/18 22:00 96 04/07/18 20:25 04/07/18 20:16 96 04/07/18 20:15 04/07/18 20:09 96 04/07/18 17:24 04/07/18 15:33 96 04/07/18 14:58 04/07/18 14:43 04/07/18 11:35 95 04/07/18 10:00 97 - Physical Examination General: No Apparent Distress Cardiac: Positive: Other (v-paced) Neuro: Positive: Grossly Intact Extremities: Absent: edema - Labs and Meds Comprehensive Metabolic Panel 04/08/18 Range/Units 04:40 Sodium 137 (137-145) mmol/L Potassium 3.1 L (3.6-5.0) mmol/L Chloride 89.7 L (98-107) mmol/L Carbon Dioxide 32 H (22-30) mmol/L BUN 36 H (7-17) mg/dL Creatinine 1.9 H (0.7-1.2) mg/dL Glucose 195 H (65-100) mg/dL Calcium 9.7 (8.4-10.2) mg/dL
[2018-04-08] MEDS: ASPIRIN PO SCH (09:49)
[2018-04-08] MEDS: LOVENOX SUB-Q SCH (09:49)
[2018-04-08] MEDS: LOPRESSOR PO SCH ×2 (09:50→21:35)
[2018-04-08] MEDS: PERCOCET 5/325 PO PRN ×2 (09:50→20:15)
[2018-04-08] MEDS: SODIUM CHLORIDE FLUSH SYRINGE 10 ML IV SCH ×2 (09:51→21:35)
--- NOTE | 2018-04-08 09:52 | Progress Note ---
Assessment and Plan This is 57 yearold female history of COPD, CAD,Hypertension CHF, HIV.AIDS came to the emergency room with shortness of breath.Also complained paroxysmal nocturnal dyspnea and orthopnea.Denied chest pain.Patient has history of defibrillator implantation.Patient complained dry cough.Patient has history of smoking 1/2 a pack a day for more than 30 years. Still smoking. Counselled to stop smoking.Denies alcohol or drug abuse. Worked in [employer] before retired. and has 2 children.Patient allergic to pencillin and also has some food allergies. 04/08/18 Patient alert, awake. Resting on 3 litres O2. O2 saturation 93%. Still complaining shortness of breath. - Patient Problems (1) Acute respiratory failure with hypoxia Current Visit: Yes Status: Acute Plan to address problem: O2 3 litres via nasal canula. Albuterol/atrovent aerosol treatments q6 hours. Continue I/V solumedrol. Continue S/C Lovenox/ Recommend Famotadine once nausea subsides. (2) CHF (congestive heart failure) Current Visit: Yes Status: Acute Plan to address problem: Management as per primary care and cardiology. (3) COPD with acute exacerbation Current Visit: Yes Status: Acute Plan to address problem: O2 3 litres via nasal canula. Albuterol/atrovent aerosol treatments q6 hours. Continue I/V solumedrol. Continue S/C Lovenox/ Recommend Famotadine once nausea subsides. Counselled to stop smoking. Continue Levaquin. (4) AICD (automatic cardioverter/defibrillator) present Current Visit: No Status: Acute Plan to address problem: Management as per cardiology (5) HIV (human immunodeficiency virus infection) Current Visit: No Status: Chronic Plan to address problem: Recommend to consult infectious diseases. Subjective Date of service: 04/08/18 Interval history: Patient alert, awake. Resting on 3 litres O2. O2 saturation 93%. Still complaining shortness of breath. Objective Vital Signs - 12hr 04/07/18 04/07/18 04/08/18 22:00 22:39 00:01 Temperature 93.0 F L Pulse Rate 95 H 91 H Respiratory 22 Rate Blood Pressure 88/54 Blood Pressure [Left] O2 Sat by Pulse 96 95 Oximetry 04/08/18 04/08/18 04/08/18 00:03 00:06 02:00 Temperature 97.6 F 97.6 F Pulse Rate 46 L 89 Respiratory 20 20 Rate Blood Pressure 87/42 Blood Pressure [Left] O2 Sat by Pulse 95 Oximetry 04/08/18 04/08/18 04/08/18 03:45 06:30 07:25 Temperature 97.5 F L 97.5 F L Pulse Rate 93 H 78 78 Respiratory 16 16 18 Rate Blood Pressure 85/39 95/38 Blood Pressure 96/39 [Left] O2 Sat by Pulse 96 95 Oximetry Constitutional: no acute distress, alert Eyes: non-icteric ENT: oropharynx moist Neck: supple, no JVD Effort: mildly labored Ascultation: Bilateral: diminished breath sounds (Prolonged expiratory phase.) Cardiovascular: regular rate and rhythm Gastrointestinal: normoactive bowel sounds, soft, non-tender Integumentary: normal Extremities: no cyanosis, no edema Neurologic: normal mental status, non-focal exam, pupils equal and round, CN II- XII normal Psychiatric: mood appropriate CBC and BMP: 04/07/18 04:59 04/08/18 04:40 ABG, PT/INR, D-dimer: ABG POC ABG pH 7.438 (7.35-7.45) 04/06/18 23:36 POC ABG pCO2 52.5 (35-45) H 04/06/18 23:36 POC ABG pO2 51 (80-105) L 04/06/18 23:36 POC ABG HCO3 35.5 04/06/18 23:36 POC ABG Total CO2 37 04/06/18 23:36 POC ABG O2 Sat 86 04/06/18 23:36 Abnormal lab findings: Abnormal Labs 04/06/18 04/06/18 04/06/18 22:09 22:09 23:22 RBC 5.59 H Hgb 17.4 H Hct 53.2 H RDW 15.5 H Lymph % (Auto) Lymph # Seg Neutrophils % Seg Neuts % (Manual) 33.0 L Lymphocytes % (Manual) 59.0 H POC ABG pCO2 POC ABG pO2 Potassium 3.1 L Chloride 95.4 L Carbon Dioxide BUN Creatinine Glucose 129 H NT-Pro-B Natriuret Pep 2989 H Digoxin 05/16/18 05/17/18 05/17/18 23:36 04:59 04:59 RBC Hgb 15.4 H Hct 47.9 H RDW 15.8 H Lymph % (Auto) 12.6 L Lymph # 0.6 L Seg Neutrophils % 85.8 H Seg Neuts % (Manual) Lymphocytes % (Manual) POC ABG pCO2 52.5 H POC ABG pO2 51 L Potassium 3.0 L Chloride 93.2 L Carbon Dioxide 32 H BUN 21 H Creatinine 1.3 H Glucose 215 H NT-Pro-B Natriuret Pep Digoxin 04/08/18 04/08/18 04:40 04:40 RBC Hgb Hct RDW Lymph % (Auto) Lymph # Seg Neutrophils % Seg Neuts % (Manual) Lymphocytes % (Manual) POC ABG pCO2 POC ABG pO2 Potassium 3.1 L Chloride 89.7 L Carbon Dioxide 32 H BUN 36 H Creatinine 1.9 H Glucose 195 H NT-Pro-B Natriuret Pep Digoxin 0.3 L
[2018-04-08] MEDS ORDERED: NACL 0.9% 1000 ML 1,000 ML IV SCH (10:00)
[2018-04-08] MEDS: BROVANA NEBU IH SCH ×2 (10:16→20:56)
[2018-04-08] MEDS: PULMICORT IH SCH ×2 (10:16→20:56)
[2018-04-08] MEDS ORDERED: K-DUR PO ONE (11:02)
--- NOTE | 2018-04-08 13:43 | Progress Note ---
Assessment and Plan Assessment and plan: 57 year with history of hypertension, HIV, CHF, coronary artery disease, COPD comes emergency room with complaints of shortness of breath that started yesterday, Also complained of PND, orthopnea. Patient was started on IV milrinone IV Lasix renal function worsened IV Lasix has been discontinued. Pulmonary was also consulted as this was felt to be a severe exacerbation of COPD as patient continues to depend on tobacco. Extensive counseling was provided. The patient's creatinine improves in a.m. patient can be discharged in a day up to resume Lasix 40 mg by mouth twice a day outpatient. She would like to be [facility] to [facility] facility she has been evaluated by physical therapy today. Acute on chronic systolic heart failure COPD with acute exacerbation Acute Hypoxic Respiratory failure Coronary artery disease Hypokalemia Tobacco use disorder YANELY secondary to vasomotor nephropathy Hypertension Hiv BiVentricular ICD s/p RV ICD lead revision (implanted new lead and abandoned previous lead) and BiVentricular ICD generator replacement 01/2016. Dilated Ischemic Cardiomyopathy recent echo reports a severe dilated cardiomyopathy, bioprosthetic mitral valve/mitral valve repair with at least moderate regurgitation. Ejection fraction 10-15% Hx of CAD s/p 2 way CABG s/p Mitral valve repair in 2002 Plan Supportive care Pulmonary Consult Cardiologic input noted Hold IV Lasix 15 Mins counselling to quit tobacco use. Patient verbalized understanding. Monitor renal function Gentle hydration Replace K Continue BB, SAL inhibitor, aspirin Check enzymes, echo, Monitor I's and O's, daily weight Start high-dose steroids and taper, nebulized treatments Continue appropriate outpatient medications DVT prophylaxis History Interval history: Patient seen and examined, still in mild respiratory distress, requiring oxygen. No chest pain, Nausea, vomiting or diarrhea. She reports some improvement today. Hospitalist Physical - Physical exam Narrative exam: VITAL SIGNS: Reviewed. GENERAL: The patient appeared well nourished and normally developed. Vital signs as documented. HEAD: No signs of head trauma. EYES: Pupils are equal. Extraocular motions intact. EARS: Hearing grossly intact. MOUTH: Oropharynx is normal. NECK: No adenopathy, no JVD. CHEST: Chest with Diminished breath sounds bilaterally. No wheezes, rales, or rhonchi. CARDIAC: Regular rate and rhythm. S1 and S2, without murmurs, gallops, or rubs. VASCULAR: No Edema. Peripheral pulses normal and equal in all extremities. ABDOMEN: Soft, without detectable tenderness. No sign of distention. No rebound or guarding, and no masses palpated. Bowel Sounds normal. MUSCULOSKELETAL: Good range of motion of all major joints. Extremities without clubbing, cyanosis or edema. NEUROLOGIC EXAM: Alert and oriented x 3. No focal sensory or strength deficits. Follows commands. PSYCHIATRIC: Mood Anxious SKIN: No rash or lesions. - Constitutional Vitals: Temp Pulse Resp BP Pulse Ox 97.5 F L 96 H 20 95/40 100 04/08/18 07:25 04/08/18 10:39 04/08/18 10:50 04/08/18 09:50 04/08/18 10:33 General appearance: Present: no acute distress Results - Labs CBC & Chem 7: 04/07/18 04:59 04/08/18 04:40 Labs: Laboratory Last Values WBC 4.5 K/mm3 (4.5-11.0) 04/07/18 04:59 RBC 4.97 M/mm3 (3.65-5.03) 04/07/18 04:59 Hgb 15.4 gm/dl (10.1-14.3) H 04/07/18 04:59 Hct 47.9 % (30.3-42.9) H 04/07/18 04:59 MCV 96 fl (79-97) 04/07/18 04:59 MCH 31 pg (28-32) 04/07/18 04:59 MCHC 32 % (30-34) 04/07/18 04:59 RDW 15.8 % (13.2-15.2) H 04/07/18 04:59 Plt Count 191 K/mm3 (140-440) 04/07/18 04:59 Lymph % (Auto) 12.6 % (13.4-35.0) L 04/07/18 04:59 [place] % (Auto) 1.2 % (0.0-7.3) 04/07/18 04:59 Eos % (Auto) 0.1 % (0.0-4.3) 04/07/18 04:59 Baso % (Auto) 0.3 % (0.0-1.8) 04/07/18 04:59 Lymph # 0.6 K/mm3 (1.2-5.4) L 04/07/18 04:59 [place] # 0.1 K/mm3 (0.0-0.8) 04/07/18 04:59 Eos # 0.0 K/mm3 (0.0-0.4) 04/07/18 04:59 Baso # 0.0 K/mm3 (0.0-0.1) 04/07/18 04:59 Add Manual Diff Complete 04/06/18 22:09 Total Counted 100 04/06/18 22:09 Seg Neutrophils % 85.8 % (40.0-70.0) H 04/07/18 04:59 Seg Neuts % (Manual) 33.0 % (40.0-70.0) L 04/06/18 22:09 Band Neutrophils % 0 % 04/06/18 22:09 Lymphocytes % (Manual) 59.0 % (13.4-35.0) H 04/06/18 22:09 Reactive Lymphs % (Man) 0 % 04/06/18 22:09 Monocytes % (Manual) 4.0 % (0.0-7.3) 04/06/18 22:09 Eosinophils % (Manual) 4.0 % (0.0-4.3) 04/06/18 22:09 Basophils % (Manual) 0 % (0.0-1.8) 04/06/18 22:09 Metamyelocytes % 0 % 04/06/18 22:09 Myelocytes % 0 % 04/06/18 22:09 Promyelocytes % 0 % 04/06/18 22:09 Blast Cells % 0 % 04/06/18 22:09 Nucleated RBC % Not Reportable 04/06/18 22:09 Seg Neutrophils # 3.8 K/mm3 (1.8-7.7) 04/07/18 04:59 Seg Neutrophils # Man 2.2 K/mm3 (1.8-7.7) 04/06/18 22:09 Band Neutrophils # 0.0 K/mm3 04/06/18 22:09 Lymphocytes # (Manual) 3.9 K/mm3 (1.2-5.4) 04/06/18 22:09 Abs React Lymphs (Man) 0.0 K/mm3 04/06/18 22:09 Monocytes # (Manual) 0.3 K/mm3 (0.0-0.8) 04/06/18 22:09 Eosinophils # (Manual) 0.3 K/mm3 (0.0-0.4) 04/06/18 22:09 Basophils # (Manual) 0.0 K/mm3 (0.0-0.1) 04/06/18 22:09 Metamyelocytes # 0.0 K/mm3 04/06/18 22:09 Myelocytes # 0.0 K/mm3 04/06/18 22:09 Promyelocytes # 0.0 K/mm3 04/06/18 22:09 Blast Cells # 0.0 K/mm3 04/06/18 22:09 WBC Morphology Not Reportable 04/06/18 22:09 Hypersegmented Neuts Not Reportable 04/06/18 22:09 Hyposegmented Neuts Not Reportable 04/06/18 22:09 Hypogranular Neuts Not Reportable 04/06/18 22:09 Smudge Cells Not Reportable 04/06/18 22:09 Toxic Granulation Not Reportable 04/06/18 22:09 Toxic Vacuolation Not Reportable 04/06/18 22:09 Dohle Bodies Not Reportable 04/06/18 22:09 Pelger-Huet Anomaly Not Reportable 04/06/18 22:09 Tevin Rods Not Reportable 04/06/18 22:09 Platelet Estimate Appears normal 04/06/18 22:09 Clumped Platelets Not Reportable 04/06/18 22:09 Plt Clumps, EDTA Not Reportable 04/06/18 22:09 Large Platelets Not Reportable 04/06/18 22:09 Giant Platelets Not Reportable 04/06/18 22:09 Platelet Satelliting Not Reportable 04/06/18 22:09 Plt Morphology Comment Not Reportable 04/06/18 22:09 RBC Morphology Not Reportable 04/06/18 22:09 Dimorphic RBCs Not Reportable 04/06/18 22:09 Polychromasia Not Reportable 04/06/18 22:09 Hypochromasia Not Reportable 04/06/18 22:09 Poikilocytosis Not Reportable 04/06/18 22:09 Anisocytosis Not Reportable 04/06/18 22:09 Microcytosis Not Reportable 04/06/18 22:09 Macrocytosis Not Reportable 04/06/18 22:09 Spherocytes Not Reportable 04/06/18 22:09 Pappenheimer Bodies Not Reportable 04/06/18 22:09 Sickle Cells Not Reportable 04/06/18 22:09 Target Cells Not Reportable 04/06/18 22:09 Tear Drop Cells Not Reportable 04/06/18 22:09 Ovalocytes Not Reportable 04/06/18 22:09 Helmet Cells Not Reportable 04/06/18 22:09 [place] Bodies Not Reportable 04/06/18 22:09 [place] Rings Not Reportable 04/06/18 22:09 Ale Cells Not Reportable 04/06/18 22:09 Bite Cells Not Reportable 04/06/18 22:09 Crenated Cell Not Reportable 04/06/18 22:09 Elliptocytes Not Reportable 04/06/18 22:09 Acanthocytes (Spur) Not Reportable 04/06/18 22:09 Rouleaux Not Reportable 04/06/18 22:09 Hemoglobin C Crystals Not Reportable 04/06/18 22:09 Schistocytes Not Reportable 04/06/18 22:09 Malaria parasites Not Reportable 04/06/18 22:09 Aron Bodies Not Reportable 04/06/18 22:09 Hem Pathologist Commnt No 04/06/18 22:09 POC ABG pH 7.438 (7.35-7.45) 04/06/18 23:36 POC ABG pCO2 52.5 (35-45) H 04/06/18 23:36 POC ABG pO2 51 (80-105) L 04/06/18 23:36 POC ABG HCO3 35.5 04/06/18 23:36 POC ABG Total CO2 37 04/06/18 23:36 POC ABG O2 Sat 86 04/06/18 23:36 POC ABG Base Excess 11 04/06/18 23:36 FiO2 21 % 04/06/18 23:36 Sodium 137 mmol/L (137-145) 04/08/18 04:40 Potassium 3.1 mmol/L (3.6-5.0) L 04/08/18 04:40 Chloride 89.7 mmol/L (98-107) L 04/08/18 04:40 Carbon Dioxide 32 mmol/L (22-30) H 04/08/18 04:40 Anion Gap 18 mmol/L 04/08/18 04:40 BUN 36 mg/dL (7-17) H 04/08/18 04:40 Creatinine 1.9 mg/dL (0.7-1.2) H 04/08/18 04:40 Estimated GFR 33 ml/min 04/08/18 04:40 BUN/Creatinine Ratio 19 % 04/08/18 04:40 Glucose 195 mg/dL (65-100) H 04/08/18 04:40 Calcium 9.7 mg/dL (8.4-10.2) 04/08/18 04:40 Troponin T 0.027 ng/mL (0.00-0.029) 04/06/18 22:09 NT-Pro-B Natriuret Pep 2989 pg/mL (0-900) H 04/06/18 23:22 Digoxin 0.3 ng/mL (0.9-2.0) L 04/08/18 04:40
[2018-04-08] MEDS ORDERED: NACL 0.9% 500 ML 500 ML IV SCH (15:00)
[2018-04-08] MEDS: LANOXIN PO SCH (17:18)
[2018-04-09] MEDS: HABITROL TD SCH ×2 (00:26→21:39)
[2018-04-09] MEDS: DUONEB *Not for PRN Use IH SCH ×4 (01:59→21:19)
[2018-04-09] MEDS: PERCOCET 5/325 PO PRN ×4 (02:40→21:45)
[2018-04-09 06:08] LABS: Calcium 9.5 mg/dL (8.4-10.2)
[2018-04-09] MEDS: PULMICORT IH SCH ×2 (08:19→21:19)
[2018-04-09] MEDS: BROVANA NEBU IH SCH ×2 (08:19→21:19)
[2018-04-09] MEDS: ZYLOPRIM PO SCH (09:32)
[2018-04-09] MEDS: LOVENOX SUB-Q SCH (09:32)
[2018-04-09] MEDS: ASPIRIN PO SCH (09:33)
[2018-04-09] MEDS: LOPRESSOR PO SCH ×2 (09:35→21:39)
--- NOTE | 2018-04-09 11:08 | Progress Note ---
Assessment and Plan Acute Hypoxemic Respiratory Failure CHF (HFrEF) Acute COPD exacerbation CAD CMOP s/p AICD implantation HIV positive Tobacco Use Disorder HTN YANELY - continue systemic steroids with taper - continue LABA & CARRIE - continue ICS (pulmicort) - BIPAP prn / qhs - she will benefit fro sleep clinic evaluation for FREDY - wean oxygen to keep sats > 90% - add empiric zithromax with this degree of radiographic and clinical COPD - continue GI & VTE prophylaxis - optimize cardiac status per cardiology recommendations ... re-evaluate in am & prn ... 35' Subjective Date of service: 04/09/18 Principal diagnosis: Acute Hypoxemic Respiratory Failure; Acute COPD exacerbation; Obesity Interval history: Patient is seen today for: Acute Hypoxemic Respiratory Failure; Acute COPD exacerbation; Obesity Seen and examined at bedside; 24hour events reviewed; nursing and respiratory care staff consulted; no adverse overnight events reported to me; remains on supplemental oxygen; overall feels better; denies acute chest pain; + cough no hemoptysis; No N/V/F/C Objective Vital Signs - 12hr 04/09/18 04/09/18 04/09/18 00:38 02:00 02:07 Temperature 97.5 F L Pulse Rate 81 80 Pulse Rate [ 79 81 Anterior Bilateral Throughout] Respiratory 20 Rate Respiratory 15 14 Rate [Anterior Bilateral Throughout] Respiratory Rate [Chest] Blood Pressure 116/81 O2 Sat by Pulse 96 Oximetry 04/09/18 04/09/18 04/09/18 04:22 07:38 09:33 Temperature 97.5 F L 97.8 F Pulse Rate 82 77 Pulse Rate [ Anterior Bilateral Throughout] Respiratory 20 20 20 Rate Respiratory Rate [Anterior Bilateral Throughout] Respiratory Rate [Chest] Blood Pressure 109/65 111/79 O2 Sat by Pulse 93 98 Oximetry 04/09/18 04/09/18 09:35 10:00 Temperature Pulse Rate 78 78 Pulse Rate [ Anterior Bilateral Throughout] Respiratory 18 Rate Respiratory Rate [Anterior Bilateral Throughout] Respiratory 20 Rate [Chest] Blood Pressure 110/64 O2 Sat by Pulse 97 Oximetry Constitutional: no acute distress, alert, other (obese AAF) Eyes: non-icteric ENT: oropharynx moist, other (large neck circumference) Neck: supple, no JVD, other (no thyromegaly) Effort: mildly labored Ascultation: Bilateral: diminished breath sounds (Prolonged expiratory phase.), rhonchi (scant) Percussion: Bilateral: not dull Cardiovascular: regular rate and rhythm, other (no R/M) Gastrointestinal: normoactive bowel sounds, soft, non-tender, non-distended, other (no palpable HSM) Integumentary: normal Extremities: no cyanosis, no edema, pulses normal, no ischemia or petechiae Neurologic: normal mental status, non-focal exam, pupils equal and round, CN II- XII normal, motor strength normal and Psychiatric: mood appropriate, depressed CBC and BMP: 04/07/18 04:59 04/09/18 05:12 ABG, PT/INR, D-dimer: ABG POC ABG pH 7.438 (7.35-7.45) 04/06/18 23:36 POC ABG pCO2 52.5 (35-45) H 04/06/18 23:36 POC ABG pO2 51 (80-105) L 04/06/18 23:36 POC ABG HCO3 35.5 04/06/18 23:36 POC ABG Total CO2 37 04/06/18 23:36 POC ABG O2 Sat 86 04/06/18 23:36 Abnormal lab findings: Abnormal Labs 04/06/18 04/06/18 04/06/18 22:09 22:09 23:22 RBC 5.59 H Hgb 17.4 H Hct 53.2 H RDW 15.5 H Lymph % (Auto) Lymph # Seg Neutrophils % Seg Neuts % (Manual) 33.0 L Lymphocytes % (Manual) 59.0 H POC ABG pCO2 POC ABG pO2 Potassium 3.1 L Chloride 95.4 L Carbon Dioxide BUN Creatinine Glucose 129 H NT-Pro-B Natriuret Pep 2989 H Digoxin 04/06/18 04/07/18 04/07/18 23:36 04:59 04:59 RBC Hgb 15.4 H Hct 47.9 H RDW 15.8 H Lymph % (Auto) 12.6 L Lymph # 0.6 L Seg Neutrophils % 85.8 H Seg Neuts % (Manual) Lymphocytes % (Manual) POC ABG pCO2 52.5 H POC ABG pO2 51 L Potassium 3.0 L Chloride 93.2 L Carbon Dioxide 32 H BUN 21 H Creatinine 1.3 H Glucose 215 H NT-Pro-B Natriuret Pep Digoxin 04/08/18 04/08/18 04/09/18 04:40 04:40 05:12 RBC Hgb Hct RDW Lymph % (Auto) Lymph # Seg Neutrophils % Seg Neuts % (Manual) Lymphocytes % (Manual) POC ABG pCO2 POC ABG pO2 Potassium 3.1 L Chloride 89.7 L 97.0 L Carbon Dioxide 32 H BUN 36 H 35 H Creatinine 1.9 H Glucose 195 H 183 H NT-Pro-B Natriuret Pep Digoxin 0.3 L Chest x-ray: image reviewed (flattened bilateral hemidiaphroagms; cardiomegaly) Allied health notes reviewed: nursing
--- NOTE | 2018-04-09 14:35 | Progress Note ---
Assessment and Plan 57 year with history of hypertension, HIV, CHF, coronary artery disease, COPD comes emergency room with complaints of shortness of breath that started yesterday, Also complained of PND, orthopnea. Patient was started on IV milrinone IV Lasix renal function worsened IV Lasix has been discontinued. Pulmonary was also consulted as this was felt to be a severe exacerbation of COPD as patient continues to depend on tobacco. Extensive counseling was provided. The patient's creatinine improves in a.m. patient can be discharged in a day up to resume Lasix 40 mg by mouth twice a day outpatient. She would like to be discharged to long term facility she has been evaluated by physical therapy today. Acute on chronic systolic heart failure COPD with acute exacerbation Acute Hypoxic Respiratory failure Coronary artery disease Hypokalemia - corrected Tobacco use disorder YANELY secondary to vasomotor nephropathy Hypertension Hiv BiVentricular ICD s/p RV ICD lead revision (implanted new lead and abandoned previous lead) and BiVentricular ICD generator replacement 01/2016. Dilated Ischemic Cardiomyopathy recent echo reports a severe dilated cardiomyopathy, bioprosthetic mitral valve/mitral valve repair with at least moderate regurgitation. Ejection fraction 10-15% Hx of CAD s/p 2 way CABG s/p Mitral valve repair in 2002 Plan Bronchodilator. iv solumedrol and supplemental oxygen Cardiologic input noted Hold IV Lasix 15 Mins counselling to quit tobacco use. Patient verbalized understanding. Monitor renal function Gentle hydration Continue BB, SAL inhibitor, aspirin Check enzymes, echo, Monitor I's and O's, daily weight Start high-dose steroids and taper, nebulized treatments Continue appropriate outpatient medications DVT prophylaxis Subjective Date of service: 04/09/18 Principal diagnosis: acuet respiratory failule Interval history: still having shortness of breath. No fever Objective - Exam Narrative Exam: Constitutional: Well-nourished well-developed. In no distress Head: Normocephalic atraumatic Eyes: Pupils are equal round and reactive to light Nose: No enlarged turbinates, no septal deviation. Mouth: Moist mucous membranes. Neck: Supple no thyromegaly. No bruit. No JVD Heart: Regular rate and rhythm, S1-S2 abnormal. No rubs murmurs or gallop Lungs: Decreased breath sounds bilaterally. no rales Abdomen: Soft, nontender. Bowel sound are present. Extremities: No edema no cyanosis and no clubbing. Neuro: Alert oriented Oriented x3. No focal sensory or motor deficit. Skin: No rashes no hyperemic spots Psychiatry: Euthymic. Calm. - Constitutional Vitals: Vital Signs - 12hr 04/09/18 04/09/18 04/09/18 04:22 07:38 08:19 Temperature 97.5 F L 97.8 F Pulse Rate 82 77 Pulse Rate [ 78 Anterior Bilateral Throughout] Respiratory 20 20 Rate Respiratory 18 Rate [Anterior Bilateral Throughout] Respiratory Rate [Chest] Blood Pressure 109/65 111/79 O2 Sat by Pulse 93 98 100 Oximetry 04/09/18 04/09/18 04/09/18 08:30 09:33 09:35 Temperature Pulse Rate 78 Pulse Rate [ 77 Anterior Bilateral Throughout] Respiratory 20 Rate Respiratory 20 Rate [Anterior Bilateral Throughout] Respiratory Rate [Chest] Blood Pressure 110/64 O2 Sat by Pulse Oximetry 04/09/18 04/09/18 10:00 10:33 Temperature Pulse Rate 78 Pulse Rate [ Anterior Bilateral Throughout] Respiratory 18 20 Rate Respiratory Rate [Anterior Bilateral Throughout] Respiratory 20 Rate [Chest] Blood Pressure O2 Sat by Pulse 97 Oximetry - Labs CBC & Chem 7: 04/07/18 04:59 04/09/18 05:12 Labs: Abnormal lab results 04/09/18 Range/Units 05:12 Chloride 97.0 L (98-107) mmol/L BUN 35 H (7-17) mg/dL Glucose 183 H (65-100) mg/dL
[2018-04-09] MEDS: SODIUM CHLORIDE FLUSH SYRINGE 10 ML IV SCH ×2 (15:53→21:40)
[2018-04-09] MEDS: LANOXIN PO SCH (16:03)
[2018-04-09] MEDS ORDERED: HABITROL TD SCH (22:00)
[2018-04-09] MEDS: MIRALAX 3350 PO PRN (23:42)
[2018-04-10] MEDS: DUONEB *Not for PRN Use IH SCH ×4 (01:46→19:36)
[2018-04-10] MEDS: PERCOCET 5/325 PO PRN ×3 (05:54→19:51)
[2018-04-10] MEDS: PULMICORT IH SCH ×2 (07:41→19:36)
[2018-04-10] MEDS: BROVANA NEBU IH SCH ×2 (07:41→19:36)
--- NOTE | 2018-04-10 09:33 | Progress Note ---
Subjective Date of service: 04/10/18 Principal diagnosis: acuet respiratory failule Interval history: Patient seen and examined No events overnight. She is feeling better No JVD, mild wheezing on exam, no edema Discontinue IV milrinone Hold IV lasix due to acute rise in BUN and creatinine. Patient also appears euvolemic on exam Resume lasix 40 mg po bid upon discharge No further cardiaac work-up Original Note: Assessment and Plan Acute systolic heart failure s/t noncompliance with dietary/fluid restrictions. BiVentricular ICD s/p RV ICD lead revision (implanted new lead and abandoned previous lead) and BiVentricular ICD generator replacement 01/2016. Dilated Ischemic Cardiomyopathy recent echo reports a severe dilated cardiomyopathy, bioprosthetic mitral valve/mitral valve repair with at least moderate regurgitation. Ejection fraction 10-15% Hx of CAD s/p 2 way CABG s/p Mitral valve repair in 2002 HIV disease Hypertension Tobacco abuse Recommendations: Continue medical therapy for heart failure and coronary artery disease as tolerated. Fluid/sodium restriction. Advised smoking cessation. Objective Vital Signs Temp Pulse Pulse Resp Resp Resp BP 04/10/18 08:53 19 04/10/18 08:06 04/10/18 08:02 75 18 04/10/18 07:41 64 16 04/10/18 05:47 97.7 F 69 20 126/90 04/10/18 02:00 85 04/10/18 00:12 98.0 F 78 20 119/63 04/09/18 22:00 18 04/09/18 21:23 79 16 04/09/18 21:22 04/09/18 21:15 72 18 04/09/18 20:21 76 20 109/74 04/09/18 18:00 84 04/09/18 16:52 18 04/09/18 16:03 80 110/60 04/09/18 15:52 20 04/09/18 15:38 98.0 F 80 18 125/85 04/09/18 14:33 82 20 04/09/18 14:23 78 20 04/09/18 11:42 97.8 F 76 18 123/68 04/09/18 10:33 20 04/09/18 10:00 78 18 20 04/09/18 09:35 78 110/64 04/09/18 09:33 20 Pulse Ox 04/10/18 08:53 04/10/18 08:06 95 04/10/18 08:02 04/10/18 07:41 04/10/18 05:47 98 04/10/18 02:00 04/10/18 00:12 89 04/09/18 22:00 04/09/18 21:23 04/09/18 21:22 100 04/09/18 21:15 04/09/18 20:21 96 04/09/18 18:00 04/09/18 16:52 04/09/18 16:03 04/09/18 15:52 04/09/18 15:38 97 04/09/18 14:33 04/09/18 14:23 04/09/18 11:42 94 04/09/18 10:33 04/09/18 10:00 97 04/09/18 09:35 04/09/18 09:33 - Physical Examination General: No Apparent Distress HEENT: Positive: PERRL Cardiac: Positive: Reg Rate and Rhythm Lungs: Positive: Normal Exam Neuro: Positive: Grossly Intact Abdomen: Positive: Unremarkable Extremities: Present: edema (trace edema) - Imaging and Cardiology EKG: image reviewed
[2018-04-10] MEDS: LOVENOX SUB-Q SCH (09:42)
[2018-04-10] MEDS: LOPRESSOR PO SCH ×2 (09:43→22:32)
[2018-04-10] MEDS: ZYLOPRIM PO SCH (09:43)
[2018-04-10] MEDS: ASPIRIN PO SCH (09:43)
[2018-04-10] MEDS: SODIUM CHLORIDE FLUSH SYRINGE 10 ML IV SCH ×2 (09:44→22:33)
--- NOTE | 2018-04-10 09:54 | Progress Note ---
Assessment and Plan 57 year with history of hypertension, HIV, CHF, coronary artery disease, COPD comes emergency room with complaints of shortness of breath that started yesterday, Also complained of PND, orthopnea. Patient was started on IV milrinone IV Lasix renal function worsened IV Lasix has been discontinued. Pulmonary was also consulted as this was felt to be a severe exacerbation of COPD as patient continues to depend on tobacco. Extensive counseling was provided. The patient's creatinine improves in a.m. patient can be discharged in a day up to resume Lasix 40 mg by mouth twice a day outpatient. She would like to be discharged to snf facility she has been evaluated by physical therapy today. Acute on chronic systolic heart failure COPD with acute exacerbation Acute Hypoxic Respiratory failure Coronary artery disease Hypokalemia - corrected Tobacco use disorder YANELY secondary to vasomotor nephropathy Hypertension Hiv positive BiVentricular ICD s/p RV ICD lead revision (implanted new lead and abandoned previous lead) and BiVentricular ICD generator replacement 01/2016. Dilated Ischemic Cardiomyopathy recent echo reports a severe dilated cardiomyopathy, bioprosthetic mitral valve/mitral valve repair with at least moderate regurgitation. Ejection fraction 10-15% Hx of CAD s/p 2 way CABG s/p Mitral valve repair in 2002 Multiple drug allergy Plan Bronchodilator. iv solumedrol and supplemental oxygen Cardiologic input noted Hold IV Lasix 15 Mins counselling to quit tobacco use. Patient verbalized understanding. Monitor renal function Gentle hydration Continue BB, SAL inhibitor, aspirin Check enzymes, echo, Monitor I's and O's, daily weight Start high-dose steroids and taper, nebulized treatments Continue appropriate outpatient medications DVT prophylaxis Subjective Date of service: 04/10/18 Principal diagnosis: acuet respiratory failule Interval history: still having shortness of breath. No fever Objective - Exam Narrative Exam: Constitutional: Morbidly obese, well-developed. In no distress Head: Normocephalic atraumatic Eyes: Pupils are equal round and reactive to light Nose: No enlarged turbinates, no septal deviation. Mouth: Moist mucous membranes. Neck: Supple no thyromegaly. No bruit. No JVD Heart: Regular rate and rhythm, S1-S2 abnormal. No rubs murmurs or gallop Lungs: Decreased breath sounds bilaterally. no rales Abdomen: Soft, nontender. Bowel sound are present. Extremities: No edema no cyanosis and no clubbing. Neuro: Alert oriented Oriented x3. No focal sensory or motor deficit. Skin: No rashes no hyperemic spots Psychiatry: Euthymic. Calm. - Constitutional Vitals: Vital Signs - 12hr 04/09/18 04/10/18 04/10/18 22:00 00:12 02:00 Temperature 98.0 F Pulse Rate 78 85 Pulse Rate [ Anterior Bilateral Throughout] Respiratory 18 20 Rate Respiratory Rate [Anterior Bilateral Throughout] Blood Pressure 119/63 O2 Sat by Pulse 89 Oximetry 04/10/18 04/10/18 04/10/18 05:47 07:41 07:53 Temperature 97.7 F 97.5 F L Pulse Rate 69 68 Pulse Rate [ 64 Anterior Bilateral Throughout] Respiratory 20 16 Rate Respiratory 16 Rate [Anterior Bilateral Throughout] Blood Pressure 126/90 128/91 O2 Sat by Pulse 98 97 Oximetry 04/10/18 04/10/18 04/10/18 08:02 08:06 08:53 Temperature Pulse Rate Pulse Rate [ 75 Anterior Bilateral Throughout] Respiratory 19 Rate Respiratory 18 Rate [Anterior Bilateral Throughout] Blood Pressure O2 Sat by Pulse 95 Oximetry 04/10/18 09:43 Temperature Pulse Rate 68 Pulse Rate [ Anterior Bilateral Throughout] Respiratory Rate Respiratory Rate [Anterior Bilateral Throughout] Blood Pressure 128/91 O2 Sat by Pulse Oximetry - Labs CBC & Chem 7: 04/07/18 04:59 04/09/18 05:12
--- NOTE | 2018-04-10 09:58 | Progress Note ---
Assessment and Plan 57 year with history of hypertension, HIV, CHF, coronary artery disease, COPD comes emergency room with complaints of shortness of breath that started yesterday, Also complained of PND, orthopnea. Patient was started on IV milrinone IV Lasix renal function worsened IV Lasix has been discontinued. Pulmonary was also consulted as this was felt to be a severe exacerbation of COPD as patient continues to depend on tobacco. Extensive counseling was provided. The patient's creatinine improves in a.m. patient can be discharged in a day up to resume Lasix 40 mg by mouth twice a day outpatient. She would like to be discharged to alf facility she has been evaluated by physical therapy today. Acute on chronic systolic heart failure COPD with acute exacerbation Acute Hypoxic Respiratory failure Coronary artery disease Hypokalemia - corrected Tobacco use disorder YANELY secondary to vasomotor nephropathy Hypertension Hiv positive BiVentricular ICD s/p RV ICD lead revision (implanted new lead and abandoned previous lead) and BiVentricular ICD generator replacement 01/2016. Dilated Ischemic Cardiomyopathy recent echo reports a severe dilated cardiomyopathy, bioprosthetic mitral valve/mitral valve repair with at least moderate regurgitation. Ejection fraction 10-15% Hx of CAD s/p 2 way CABG s/p Mitral valve repair in 2002 Plan Bronchodilator. iv solumedrol and supplemental oxygen Cardiologic input noted Hold IV Lasix 15 Mins counselling to quit tobacco use. Patient verbalized understanding. Monitor renal function Gentle hydration Continue BB, SAL inhibitor, aspirin Check enzymes, echo, Monitor I's and O's, daily weight Start high-dose steroids and taper, nebulized treatments Continue appropriate outpatient medications DVT prophylaxis Subjective Date of service: 04/10/18 Principal diagnosis: acuet respiratory failule Interval history: still having shortness of breath. No fever Objective - Exam Narrative Exam: Constitutional: Well-nourished well-developed. In no distress Head: Normocephalic atraumatic Eyes: Pupils are equal round and reactive to light Nose: No enlarged turbinates, no septal deviation. Mouth: Moist mucous membranes. Neck: Supple no thyromegaly. No bruit. No JVD Heart: Regular rate and rhythm, S1-S2 abnormal. No rubs murmurs or gallop Lungs: Decreased breath sounds bilaterally. no rales Abdomen: Soft, nontender. Bowel sound are present. Extremities: No edema no cyanosis and no clubbing. Neuro: Alert oriented Oriented x3. No focal sensory or motor deficit. Skin: No rashes no hyperemic spots Psychiatry: Euthymic. Calm. - Constitutional Vitals: Vital Signs - 12hr 04/09/18 04/10/18 04/10/18 22:00 00:12 02:00 Temperature 98.0 F Pulse Rate 78 85 Pulse Rate [ Anterior Bilateral Throughout] Respiratory 18 20 Rate Respiratory Rate [Anterior Bilateral Throughout] Blood Pressure 119/63 O2 Sat by Pulse 89 Oximetry 04/10/18 04/10/18 04/10/18 05:47 07:41 07:53 Temperature 97.7 F 97.5 F L Pulse Rate 69 68 Pulse Rate [ 64 Anterior Bilateral Throughout] Respiratory 20 16 Rate Respiratory 16 Rate [Anterior Bilateral Throughout] Blood Pressure 126/90 128/91 O2 Sat by Pulse 98 97 Oximetry 04/10/18 04/10/18 04/10/18 08:02 08:06 08:53 Temperature Pulse Rate Pulse Rate [ 75 Anterior Bilateral Throughout] Respiratory 19 Rate Respiratory 18 Rate [Anterior Bilateral Throughout] Blood Pressure O2 Sat by Pulse 95 Oximetry 04/10/18 09:43 Temperature Pulse Rate 68 Pulse Rate [ Anterior Bilateral Throughout] Respiratory Rate Respiratory Rate [Anterior Bilateral Throughout] Blood Pressure 128/91 O2 Sat by Pulse Oximetry - Labs CBC & Chem 7: 04/07/18 04:59 04/09/18 05:12
--- NOTE | 2018-04-10 15:24 | Progress Note ---
Assessment and Plan Acute Hypoxemic Respiratory Failure CHF (HFrEF) Acute COPD exacerbation CAD CMOP s/p AICD implantation HIV positive Tobacco Use Disorder HTN YANELY - continue systemic steroids with taper - continue LABA & CARRIE - continue ICS (pulmicort) - BIPAP prn / qhs - she will benefit fro sleep clinic evaluation for FREDY - wean oxygen to keep sats > 90% - add empiric zithromax with this degree of radiographic and clinical COPD - continue GI & VTE prophylaxis - optimize cardiac status per cardiology recommendations ... re-evaluate in am & prn ... 35' Subjective Date of service: 04/10/18 Principal diagnosis: Acute Hypoxemic Respiratory Failure; Acute COPD exacerbation; Obesity Interval history: Patient is seen today for: Acute Hypoxemic Respiratory Failure; Acute COPD exacerbation; Obesity Seen and examined at bedside; 24hour events reviewed; nursing and respiratory care staff consulted; no adverse overnight events reported to me; remains on supplemental oxygen; Objective Vital Signs - 12hr 04/10/18 04/10/18 04/10/18 05:47 07:41 07:53 Temperature 97.7 F 97.5 F L Pulse Rate 69 68 Pulse Rate [ 64 Anterior Bilateral Throughout] Pulse Rate [ Apical] Respiratory 20 16 Rate Respiratory 16 Rate [Anterior Bilateral Throughout] Blood Pressure 126/90 128/91 Blood Pressure [Left] O2 Sat by Pulse 98 97 Oximetry 04/10/18 04/10/18 04/10/18 08:02 08:06 08:53 Temperature Pulse Rate Pulse Rate [ 75 Anterior Bilateral Throughout] Pulse Rate [ 71 Apical] Respiratory 19 Rate Respiratory 18 Rate [Anterior Bilateral Throughout] Blood Pressure Blood Pressure [Left] O2 Sat by Pulse 95 Oximetry 04/10/18 04/10/18 04/10/18 09:43 10:00 12:19 Temperature 98.5 F Pulse Rate 68 71 68 Pulse Rate [ Anterior Bilateral Throughout] Pulse Rate [ Apical] Respiratory 17 Rate Respiratory Rate [Anterior Bilateral Throughout] Blood Pressure 128/91 Blood Pressure 120/89 [Left] O2 Sat by Pulse 100 Oximetry 04/10/18 12:36 Temperature Pulse Rate Pulse Rate [ Anterior Bilateral Throughout] Pulse Rate [ Apical] Respiratory 17 Rate Respiratory Rate [Anterior Bilateral Throughout] Blood Pressure Blood Pressure [Left] O2 Sat by Pulse Oximetry Constitutional: no acute distress, alert, other (obese AAF) Eyes: non-icteric ENT: oropharynx moist, other (large neck circumference) Neck: supple, no JVD, other (no thyromegaly) Effort: mildly labored Ascultation: Bilateral: diminished breath sounds (Prolonged expiratory phase.), rhonchi (scant) Percussion: Bilateral: not dull Cardiovascular: regular rate and rhythm, other (no R/M) Gastrointestinal: normoactive bowel sounds, soft, non-tender, non-distended, other (no palpable HSM) Integumentary: normal Extremities: no cyanosis, no edema, pulses normal, no ischemia or petechiae Neurologic: normal mental status, non-focal exam, pupils equal and round, CN II- XII normal, motor strength normal and Psychiatric: mood appropriate, depressed CBC and BMP: 04/07/18 04:59 04/09/18 05:12 ABG, PT/INR, D-dimer: ABG POC ABG pH 7.438 (7.35-7.45) 04/06/18 23:36 POC ABG pCO2 52.5 (35-45) H 04/06/18 23:36 POC ABG pO2 51 (80-105) L 04/06/18 23:36 POC ABG HCO3 35.5 04/06/18 23:36 POC ABG Total CO2 37 04/06/18 23:36 POC ABG O2 Sat 86 04/06/18 23:36 Abnormal lab findings: Abnormal Labs 04/06/18 04/06/18 04/06/18 22:09 22:09 23:22 RBC 5.59 H Hgb 17.4 H Hct 53.2 H RDW 15.5 H Lymph % (Auto) Lymph # Seg Neutrophils % Seg Neuts % (Manual) 33.0 L Lymphocytes % (Manual) 59.0 H POC ABG pCO2 POC ABG pO2 Potassium 3.1 L Chloride 95.4 L Carbon Dioxide BUN Creatinine Glucose 129 H NT-Pro-B Natriuret Pep 2989 H Digoxin 04/06/18 04/07/18 04/07/18 23:36 04:59 04:59 RBC Hgb 15.4 H Hct 47.9 H RDW 15.8 H Lymph % (Auto) 12.6 L Lymph # 0.6 L Seg Neutrophils % 85.8 H Seg Neuts % (Manual) Lymphocytes % (Manual) POC ABG pCO2 52.5 H POC ABG pO2 51 L Potassium 3.0 L Chloride 93.2 L Carbon Dioxide 32 H BUN 21 H Creatinine 1.3 H Glucose 215 H NT-Pro-B Natriuret Pep Digoxin 04/08/18 04/08/18 04/09/18 04:40 04:40 05:12 RBC Hgb Hct RDW Lymph % (Auto) Lymph # Seg Neutrophils % Seg Neuts % (Manual) Lymphocytes % (Manual) POC ABG pCO2 POC ABG pO2 Potassium 3.1 L Chloride 89.7 L 97.0 L Carbon Dioxide 32 H BUN 36 H 35 H Creatinine 1.9 H Glucose 195 H 183 H NT-Pro-B Natriuret Pep Digoxin 0.3 L Allied health notes reviewed: nursing
[2018-04-10] MEDS: ZITHROMAX PO SCH (17:08)
[2018-04-10] MEDS: LANOXIN PO SCH (17:08)
[2018-04-10] MEDS: MIRALAX 3350 PO PRN (17:17)
[2018-04-10] MEDS: HABITROL TD SCH (22:31)
[2018-04-11] MEDS: PERCOCET 5/325 PO PRN ×4 (01:20→20:06)
[2018-04-11] MEDS: DUONEB *Not for PRN Use IH SCH ×4 (01:30→20:21)
[2018-04-11] MEDS: BROVANA NEBU IH SCH ×2 (07:33→20:21)
[2018-04-11] MEDS: PULMICORT IH SCH ×2 (07:33→20:21)
[2018-04-11] MEDS: LOPRESSOR PO SCH (09:15)
[2018-04-11] MEDS: ZYLOPRIM PO SCH (09:16)
[2018-04-11] MEDS: ZITHROMAX PO SCH (09:16)
[2018-04-11] MEDS: ASPIRIN PO SCH (09:16)
[2018-04-11] MEDS: LOVENOX SUB-Q SCH (09:17)
--- NOTE | 2018-04-11 09:45 | Progress Note ---
Assessment and Plan 57 year with history of hypertension, HIV, CHF, coronary artery disease, COPD comes emergency room with complaints of shortness of breath that started yesterday, Also complained of PND, orthopnea. Patient was started on IV milrinone IV Lasix renal function worsened IV Lasix has been discontinued. Pulmonary was also consulted as this was felt to be a severe exacerbation of COPD as patient continues to depend on tobacco. Extensive counseling was provided. The patient's creatinine improves in a.m. patient can be discharged in a day up to resume Lasix 40 mg by mouth twice a day outpatient. She would like to be discharged to senior living facility she has been evaluated by physical therapy today. Acute on chronic systolic heart failure COPD with acute exacerbation Acute Hypoxic Respiratory failure Coronary artery disease Hypokalemia - corrected Tobacco use disorder YANELY secondary to diuresis Hypertension Hiv positive BiVentricular ICD s/p RV ICD lead revision (implanted new lead and abandoned previous lead) and BiVentricular ICD generator replacement 01/2016. Dilated Ischemic Cardiomyopathy recent echo reports a severe dilated cardiomyopathy, bioprosthetic mitral valve/mitral valve repair with at least moderate regurgitation. Ejection fraction 10-15% Hx of CAD s/p 2 way CABG s/p Mitral valve repair in 2002 Plan Bronchodilator. taper iv solumedrol and supplemental oxygen Cardiologic input noted Hold IV Lasix 15 Mins counselling to quit tobacco use. Patient verbalized understanding. Monitor renal function Gentle hydration Continue BB, SAL inhibitor, aspirin Check enzymes, echo, Monitor I's and O's, daily weight Start high-dose steroids and taper, nebulized treatments Continue appropriate outpatient medications DVT prophylaxis discussed with sr solutions consultant Subjective Date of service: 04/11/18 Principal diagnosis: acuet respiratory failule Interval history: still having shortness of breath. No fever Objective - Exam Narrative Exam: Constitutional: Obese. well-developed. In no distress Head: Normocephalic atraumatic Eyes: Pupils are equal round and reactive to light Nose: No enlarged turbinates, no septal deviation. Mouth: Moist mucous membranes. Neck: Supple no thyromegaly. No bruit. No JVD Heart: Regular rate and rhythm, S1-S2 abnormal. No rubs murmurs or gallop Lungs: Decreased breath sounds bilaterally. no rales Abdomen: Soft, nontender. Bowel sound are present. Extremities: No edema no cyanosis and no clubbing. Neuro: Alert oriented Oriented x3. No focal sensory or motor deficit. Skin: No rashes no hyperemic spots Psychiatry: Euthymic. Calm. - Constitutional Vitals: Vital Signs - 12hr 04/10/18 04/10/18 04/11/18 22:32 23:39 01:20 Temperature 98.3 F Pulse Rate 76 77 Pulse Rate [ Posterior Bilateral Throughout] Respiratory 20 20 Rate Respiratory Rate [Chest] Respiratory Rate [Posterior Bilateral Throughout] Blood Pressure 143/79 141/80 Blood Pressure [Left] O2 Sat by Pulse 99 Oximetry 04/11/18 04/11/18 04/11/18 01:30 01:41 03:52 Temperature Pulse Rate 77 Pulse Rate [ 72 70 Posterior Bilateral Throughout] Respiratory Rate Respiratory 20 Rate [Chest] Respiratory 18 18 Rate [Posterior Bilateral Throughout] Blood Pressure Blood Pressure [Left] O2 Sat by Pulse Oximetry 04/11/18 04/11/18 04/11/18 06:00 07:20 07:30 Temperature 97.7 F Pulse Rate 63 Pulse Rate [ 67 70 Posterior Bilateral Throughout] Respiratory 18 Rate Respiratory Rate [Chest] Respiratory 14 16 Rate [Posterior Bilateral Throughout] Blood Pressure 156/104 Blood Pressure [Left] O2 Sat by Pulse 100 100 Oximetry 04/11/18 04/11/18 04/11/18 08:27 08:37 09:15 Temperature 98.3 F Pulse Rate 76 76 Pulse Rate [ Posterior Bilateral Throughout] Respiratory 20 19 Rate Respiratory Rate [Chest] Respiratory Rate [Posterior Bilateral Throughout] Blood Pressure 143/66 Blood Pressure 143/66 [Left] O2 Sat by Pulse 96 Oximetry 04/11/18 09:16 Temperature Pulse Rate Pulse Rate [ Posterior Bilateral Throughout] Respiratory 19 Rate Respiratory Rate [Chest] Respiratory Rate [Posterior Bilateral Throughout] Blood Pressure Blood Pressure [Left] O2 Sat by Pulse Oximetry - Labs CBC & Chem 7: 04/07/18 04:59 04/09/18 05:12
--- NOTE | 2018-04-11 10:33 | Progress Note ---
Assessment and Plan Acute systolic heart failure s/t noncompliance with dietary/fluid restrictions. Acute renal failure BiVentricular ICD s/p RV ICD lead revision (implanted new lead and abandoned previous lead) and BiVentricular ICD generator replacement 01/2016. Dilated Ischemic Cardiomyopathy recent echo reports a severe dilated cardiomyopathy, bioprosthetic mitral valve/mitral valve repair with at least moderate regurgitation. Ejection fraction 10-15% Hx of CAD s/p 2 way CABG s/p Mitral valve repair in 2002 HIV disease Hypertension Tobacco abuse Recommendations: Continue medical therapy for heart failure and coronary artery disease as tolerated. Fluid/sodium restriction. Advised smoking cessation. Subjective Date of service: 04/11/18 Principal diagnosis: acuet respiratory failule Interval history: Patient reports she is feeling better. She denies shortness of breath. Diuretics held due to acute renal failure; creatinine has improved to 1.2. Objective Vital Signs Temp Pulse Pulse Resp Resp Resp BP 04/11/18 09:16 19 04/11/18 09:15 76 143/66 04/11/18 08:37 19 04/11/18 08:27 98.3 F 76 20 04/11/18 07:30 70 16 04/11/18 07:20 67 14 04/11/18 06:00 97.7 F 63 18 156/104 04/11/18 03:52 77 20 04/11/18 01:41 70 18 04/11/18 01:30 72 18 04/11/18 01:20 20 04/10/18 23:39 98.3 F 77 20 141/80 04/10/18 22:32 76 143/79 04/10/18 21:13 98.1 F 76 20 143/79 04/10/18 19:51 22 04/10/18 19:46 74 16 04/10/18 19:36 69 16 04/10/18 17:08 78 04/10/18 16:37 97.5 F L 72 16 129/90 04/10/18 15:36 77 18 04/10/18 15:19 75 16 04/10/18 12:36 17 04/10/18 12:19 98.5 F 68 17 BP Pulse Ox 04/11/18 09:16 04/11/18 09:15 04/11/18 08:37 04/11/18 08:27 143/66 96 04/11/18 07:30 04/11/18 07:20 100 04/11/18 06:00 100 04/11/18 03:52 04/11/18 01:41 04/11/18 01:30 04/11/18 01:20 04/10/18 23:39 99 04/10/18 22:32 04/10/18 21:13 92 04/10/18 19:51 04/10/18 19:46 04/10/18 19:36 95 04/10/18 17:08 04/10/18 16:37 95 04/10/18 15:36 04/10/18 15:19 04/10/18 12:36 04/10/18 12:19 120/89 100 - Physical Examination General: No Apparent Distress HEENT: Positive: PERRL Cardiac: Positive: Other (paced) Lungs: Positive: Decreased Breath Sounds Neuro: Positive: Grossly Intact Extremities: Absent: edema - Allied health notes Allied health notes reviewed: nursing
[2018-04-11] MEDS: SODIUM CHLORIDE FLUSH SYRINGE 10 ML IV SCH (11:03)
[2018-04-11] MEDS ORDERED: ZAROXOLYN PO SCH (14:00)
[2018-04-11] MEDS ORDERED: K-DUR PO SCH (14:00)
[2018-04-11] MEDS ORDERED: LASIX PO SCH (14:00)
[2018-04-11] MEDS ORDERED: COREG PO SCH (14:00)
[2018-04-11] MEDS ORDERED: ZESTRIL PO SCH (14:00)
[2018-04-11] MEDS ORDERED: BIDIL 20/37.5MG PO SCH (14:00)
--- NOTE | 2018-04-11 14:27 | Progress Note ---
Assessment and Plan Acute Hypoxemic Respiratory Failure CHF (HFrEF) Acute COPD exacerbation CAD CMOP s/p AICD implantation HIV positive Tobacco Use Disorder HTN YANELY - continue systemic steroids with taper - continue LABA & CARRIE - continue ICS (pulmicort) - BIPAP prn / qhs - she will benefit fro sleep clinic evaluation for FREDY - wean oxygen to keep sats > 90% - add empiric zithromax with this degree of radiographic and clinical COPD - continue GI & VTE prophylaxis - optimize cardiac status per cardiology recommendations ... re-evaluate in am & prn ... 25' Subjective Date of service: 04/11/18 Principal diagnosis: Acute Hypoxemic Respiratory Failure; Acute COPD exacerbation; HFrEF Interval history: Patient is seen today for: Acute Hypoxemic Respiratory Failure; Acute COPD exacerbation; Obesity Seen and examined at bedside; 24hour events reviewed; nursing and respiratory care staff consulted; no adverse overnight events reported to me; remains on supplemental oxygen; Objective Vital Signs - 12hr 04/11/18 04/11/18 04/11/18 03:52 06:00 07:19 Temperature 97.7 F Pulse Rate 77 63 74 Pulse Rate [ Posterior Bilateral Throughout] Respiratory 18 Rate Respiratory 20 Rate [Chest] Respiratory Rate [Posterior Bilateral Throughout] Blood Pressure 156/104 Blood Pressure [Left] O2 Sat by Pulse 100 99 Oximetry 04/11/18 04/11/18 04/11/18 07:20 07:30 08:27 Temperature 98.3 F Pulse Rate 72 76 Pulse Rate [ 67 70 Posterior Bilateral Throughout] Respiratory 20 Rate Respiratory Rate [Chest] Respiratory 14 16 Rate [Posterior Bilateral Throughout] Blood Pressure Blood Pressure 143/66 [Left] O2 Sat by Pulse 98 96 Oximetry 04/11/18 04/11/18 04/11/18 08:37 09:15 09:16 Temperature Pulse Rate 76 Pulse Rate [ Posterior Bilateral Throughout] Respiratory 19 19 Rate Respiratory Rate [Chest] Respiratory Rate [Posterior Bilateral Throughout] Blood Pressure 143/66 Blood Pressure [Left] O2 Sat by Pulse Oximetry 04/11/18 11:24 Temperature 97.3 F L Pulse Rate 79 Pulse Rate [ Posterior Bilateral Throughout] Respiratory 20 Rate Respiratory Rate [Chest] Respiratory Rate [Posterior Bilateral Throughout] Blood Pressure 134/76 Blood Pressure [Left] O2 Sat by Pulse 96 Oximetry Constitutional: no acute distress, alert, other (obese AAF) Eyes: non-icteric ENT: oropharynx moist, other (large neck circumference) Neck: supple, no JVD, other (no thyromegaly) Effort: mildly labored Ascultation: Bilateral: diminished breath sounds (Prolonged expiratory phase.), rhonchi (scant) Percussion: Bilateral: not dull Cardiovascular: regular rate and rhythm, other (no R/M) Gastrointestinal: normoactive bowel sounds, soft, non-tender, non-distended, other (no palpable HSM) Integumentary: normal Extremities: no cyanosis, no edema, pulses normal, no ischemia or petechiae Neurologic: normal mental status, non-focal exam, pupils equal and round, CN II- XII normal, motor strength normal and Psychiatric: mood appropriate, depressed CBC and BMP: 04/07/18 04:59 04/09/18 05:12 ABG, PT/INR, D-dimer: ABG POC ABG pH 7.438 (7.35-7.45) 04/06/18 23:36 POC ABG pCO2 52.5 (35-45) H 04/06/18 23:36 POC ABG pO2 51 (80-105) L 04/06/18 23:36 POC ABG HCO3 35.5 04/06/18 23:36 POC ABG Total CO2 37 04/06/18 23:36 POC ABG O2 Sat 86 04/06/18 23:36 Abnormal lab findings: Abnormal Labs 04/06/18 04/06/18 04/06/18 22:09 22:09 23:22 RBC 5.59 H Hgb 17.4 H Hct 53.2 H RDW 15.5 H Lymph % (Auto) Lymph # Seg Neutrophils % Seg Neuts % (Manual) 33.0 L Lymphocytes % (Manual) 59.0 H POC ABG pCO2 POC ABG pO2 Potassium 3.1 L Chloride 95.4 L Carbon Dioxide BUN Creatinine Glucose 129 H NT-Pro-B Natriuret Pep 2989 H Digoxin 04/06/18 04/07/18 04/07/18 23:36 04:59 04:59 RBC Hgb 15.4 H Hct 47.9 H RDW 15.8 H Lymph % (Auto) 12.6 L Lymph # 0.6 L Seg Neutrophils % 85.8 H Seg Neuts % (Manual) Lymphocytes % (Manual) POC ABG pCO2 52.5 H POC ABG pO2 51 L Potassium 3.0 L Chloride 93.2 L Carbon Dioxide 32 H BUN 21 H Creatinine 1.3 H Glucose 215 H NT-Pro-B Natriuret Pep Digoxin 04/08/18 04/08/18 04/09/18 04:40 04:40 05:12 RBC Hgb Hct RDW Lymph % (Auto) Lymph # Seg Neutrophils % Seg Neuts % (Manual) Lymphocytes % (Manual) POC ABG pCO2 POC ABG pO2 Potassium 3.1 L Chloride 89.7 L 97.0 L Carbon Dioxide 32 H BUN 36 H 35 H Creatinine 1.9 H Glucose 195 H 183 H NT-Pro-B Natriuret Pep Digoxin 0.3 L Allied health notes reviewed: nursing
--- NOTE | 2018-04-11 16:04 | Consultation ---
History of Present Illness - Reason for Consult Consult date: 04/11/18 PVD with claudication Requesting physician: ELVA BROCK - History of Present Illness This pt is a 57 yo AAF that was admitted 04/06/18 due to SOB. She was noted to be in CHF. Cardiology was consulted and her breathing has improved slightly per the pt. Pt c/o short distance claudication (~80 feet), which results in her having to stop walking and rest for several minutes. This has been progressively worse over the last few weeks. Pt smokes about 10 cig/day, but now wants to stop. She denies pain at rest. She was able to heal a toe wound ~1 year ago. Past History Past Medical History: CAD, COPD, HIV/AIDS, hypertension Past Surgical History: cholecystectomy, CABG (double bypass), Other ( Defbrillator implantation, removal of ovarian cyst) Social history: smoking (1/2 ppd), other (pt to be d/c to SNF upon discharge) Family history: hypertension, stroke Medications and Allergies Allergies Allergy/AdvReac Type Severity Reaction Status Date / Time Penicillins Allergy Unknown Verified 03/22/14 02:56 Home Medications Medication Instructions Recorded Confirmed Last Taken Type Allopurinol [Zyloprim] 100 mg PO QDAY #30 tablet 01/04/18 04/07/18 Unknown Rx Arformoterol Nebu [Brovana Nebu] 15 mcg IH Q12HRT #1 ml 01/04/18 04/07/18 Unknown Rx Aspirin [Aspirin TAB] 325 mg PO QDAY #30 tablet 01/04/18 04/07/18 Unknown Rx Budesonide [Pulmicort Respules] 0.5 mg IH Q12HRT #1 nebu 01/04/18 04/07/18 Unknown Rx Digoxin [Lanoxin] 0.25 mg PO DAILY #30 tablet 01/04/18 04/07/18 Unknown Rx Furosemide [Lasix TAB] 40 mg PO BID #120 tablet 01/04/18 04/07/18 Unknown Rx Lisinopril [Zestril TAB] 2.5 mg PO QDAY #30 tablet 01/04/18 04/07/18 Unknown Rx Metoprolol [Lopressor TAB] 50 mg PO BID #60 tablet 01/04/18 04/07/18 Unknown Rx Potassium Chloride [K-Dur] 20 meq PO Q12H #30 tablet 01/04/18 04/07/18 Unknown Rx ALBUTEROL Inhaler [ProAir HFA 2 puff IH QID PRN #2 can 01/06/18 04/07/18 Unknown Rx Inhaler] Emtricitab/Rilpiviri/Tenof Ala 1 each PO DAILY 04/08/18 04/08/18 04/08/18 21:31 History [Odefsey Tablet] Sulfamethoxazole/Trimethoprim 1 each PO DAILY 04/08/18 04/08/18 04/08/18 21:32 History [Bactrim DS TAB] Active Meds: Active Medications Acetaminophen (Tylenol) 650 mg PO Q4H PRN PRN Reason: Pain MILD(1-3)/Fever >100.5/[place] Albuterol/Ipratropium (Duoneb *Not For Prn Use*) 1 ampul IH Q6HRT [facility] Last Admin: 04/11/18 14:26 Dose: 1 ampul Allopurinol (Zyloprim) 100 mg PO QDAY [facility] Last Admin: 04/11/18 09:16 Dose: 100 mg Arformoterol Tartrate (Brovana Nebu) 15 mcg IH Q12HRT [facility] Last Admin: 04/11/18 07:33 Dose: 15 mcg Aspirin (Aspirin) 325 mg PO QDAY [facility] Last Admin: 04/11/18 09:16 Dose: 325 mg Atorvastatin Calcium (Lipitor) 40 mg PO QHS [facility] Azithromycin (Zithromax) 500 mg PO QDAY [facility] Last Admin: 04/11/18 09:16 Dose: 500 mg Budesonide (Pulmicort) 0.5 mg IH Q12HRT [facility] Last Admin: 04/11/18 07:33 Dose: 0.5 mg Carvedilol (Coreg) 12.5 mg PO BID [facility] Digoxin (Lanoxin) 0.125 mg PO DAILY@1700 [facility] Enoxaparin Sodium (Lovenox) 40 mg SUB-Q QDAY@1000 [facility] Last Admin: 04/11/18 09:17 Dose: 40 mg Furosemide (Lasix) 60 mg PO QDAY [facility] Last Admin: 04/11/18 14:50 Dose: 60 mg Isosorbide Dinitrate/Hydralazine (Bidil 20/37.5mg) 1 each PO Q8HR [facility] Last Admin: 04/11/18 14:50 Dose: 1 each Lisinopril (Zestril) 5 mg PO QDAY [facility] Last Admin: 04/11/18 14:51 Dose: 5 mg Methylprednisolone Sodium Succinate (Solu-Medrol) 40 mg IV Q8H [facility] Last Admin: 04/11/18 14:51 Dose: 40 mg Metolazone (Zaroxolyn) 2.5 mg PO QDAY [facility] Last Admin: 04/11/18 14:50 Dose: 2.5 mg Nicotine (Habitrol) 21 mg TD 2200 [facility] Last Admin: 04/10/18 22:31 Dose: 21 mg Ondansetron HCl (Zofran) 4 mg IV Q8H PRN PRN Reason: Nausea And Vomiting Last Admin: 04/07/18 22:37 Dose: 4 mg Oxycodone/Acetaminophen (Percocet 5/325) 1 tab PO Q4H PRN PRN Reason: Pain, Moderate (4-6) Last Admin: 04/11/18 14:52 Dose: 1 tab Polyethylene Glycol (Miralax 3350) 17 gm PO BID PRN PRN Reason: Constipation Last Admin: 04/10/18 17:17 Dose: 17 gm Potassium Chloride (K-Dur) 10 meq PO QDAY [facility] Last Admin: 04/11/18 14:50 Dose: 10 meq Sodium Chloride (Sodium Chloride Flush Syringe 10 Ml) 10 ml IV BID [facility] Last Admin: 04/11/18 11:03 Dose: 10 ml Sodium Chloride (Sodium Chloride Flush Syringe 10 Ml) 10 ml IV PRN PRN PRN Reason: LINE FLUSH Review of Systems All systems: negative Exam - Constitutional Vitals: Temp Pulse Resp BP Pulse Ox 97.3 F L 68 19 125/86 97 04/11/18 11:24 04/11/18 14:51 04/11/18 14:52 04/11/18 14:51 04/11/18 14:32 General appearance: Present: no acute distress - EENT Eyes: Present: EOM intact ENT: hearing intact - Neck Neck: Present: normal ROM - Respiratory Respiratory effort: normal (unlabored at rest with supplemental oxygen by OK) - Extremities Extremities: normal temperature Extremity abnormal: pulses diminished (non-palpable pedal pulses bilat, palp radial pulse bilat), other (no ulcerations of skin lesion on the left foot) - Psychiatric Psychiatric: appropriate mood/affect, intact judgment & insight, cooperative - Neurologic Neurologic: no focal deficits, moves all extremities Results - Labs CBC & Chem 7: 04/07/18 04:59 04/09/18 05:12 Assessment and Plan This pt was admitted with an acute exacerbation of chronic CHF. She was evaluated by cardiology, and her breathing is improving. She complains of short distance claudication, which is life altering. Arterial duplex confirms significant PVD especially on the left. She denies rest pain or difficulty healing wounds at present (though, she certainly is at risk of having difficulty healing distal wounds given the degree of arterial dz per her u/s). She is preparing for d/c to a rehab facility. Given the recent ARF, would avoid contrast exposure at present. Would allow her kidneys to recover. She should follow up in our office in ~2wks. At that point, further w/u could be pursued ( suspect CTA, to determine what options for revascularization are possible). This was discussed with the pt extensively. She states understanding and agrees. Encouraged pt to protect her feet and avoid injury as possible (as this could result in rapid deterioration and potentially precipitate limb loss). If she develops lower ext wounds, or if other issues arise, she will call our office for a more urgent follow up as needed. - Patient Problems (1) Atherosclerosis of [place] arteries of extremity with intermittent claudication Current Visit: Yes Status: Acute (2) ARF (acute renal failure) Current Visit: Yes Status: Acute (3) Acute on chronic systolic (congestive) heart failure Current Visit: No Status: Acute (4) HIV (human immunodeficiency virus infection) Current Visit: No Status: Chronic (5) HTN (hypertension) Current Visit: No Status: Chronic Qualifiers: Hypertension type: essential hypertension Qualified Code(s): I10 - Essential (primary) hypertension (6) AICD (automatic cardioverter/defibrillator) present Current Visit: No Status: Acute
--- NOTE | 2018-04-11 16:47 | Discharge Summary ---
Providers - Providers Date of Admission: 04/06/18 23:57 Date of discharge: 04/11/18 Attending physician: ELVA BROCK 04/07/18 00:14 Consult to Physician [CONS] Routine Comment: Consulting Provider: CRISTIN BENDER Physician Instructions: Reason For Exam: chf 04/07/18 12:12 Consult to Physician [CONS] Routine Comment: Consulting Provider: ASHLEY HOLDEN Physician Instructions: Reason For Exam: copd exacerbation 04/07/18 12:28 Occupational Therapy Evaluate and Treat [CONS] Urgent Comment: Reason For Exam: possible rehab placement Physical Therapy Evaluation and Treat [CONS] Urgent Comment: Reason For Exam: Possible Rehab placement Primary care physician: [facility] Hospitalization Reason for admission: heart failure Condition: Stable Pertinent studies: systolic heart failure Procedures: CXR, arterial doppler suraj LE Hospital course: This is a 57yr old woman with a history of HIV disease, ischemic cardiomyopathy and CAD s/p CABG and mitral valve repair at [facility] in 2002. In addition, she has a Biventricular ICD in situ. In 2016, patient underwent RV ICD lead revision (implanted new lead and abandoned previous lead) and BiVentricular ICD generator replacement. Latest echocardiogram documents severe dilated cardiomyopathy, bioprosthetic mitral valve/mitral valve repair with at least moderate regurgitation. Ejection fraction 10-15%. Patient presented to this hospital with shortness of breath admitted with acute hypoxic respiratory failure. It's reported oxygen sats of 88% on presentation. In addition, patient reports she continues to smoke. A cardiac consultation was requested for CHF management. Patient admits to noncompliance with dietary and fluid restrictions. She denies chest pain. There is no lower extremity edema. Chest x-ray documents cardiomegaly with interstitial edema and underlying COPD. EKG is a ventricular paced rhythm. Disposition: DC/TX-03 SNF [facility] C[facility] Time spent for discharge: 35 min Core Measure Documentation - Palliative Care Palliative Care/ Comfort Measures: Not Applicable - Core Measures Any of the following diagnoses?: heart failure - Heart Failure Discharge Requirements SAL/ARB for LVSD if EF <40%: Yes Beta padilla at discharge: Yes Exam - Physical Exam Narrative exam: Constitutional: well-developed. In no distress Head: Normocephalic atraumatic Eyes: Pupils are equal round and reactive to light Nose: No enlarged turbinates, no septal deviation. Mouth: Moist mucous membranes. Neck: Supple no thyromegaly. No bruit. No JVD Heart: Regular rate and rhythm, S1-S2 abnormal. No rubs murmurs or gallop Lungs: Decreased breath sounds bilaterally. no rales Abdomen: Soft, nontender. Bowel sound are present. Extremities: No edema no cyanosis and no clubbing. Neuro: Alert oriented Oriented x3. No focal sensory or motor deficit. Skin: No rashes no hyperemic spots Psychiatry: Euthymic. Calm. - Constitutional Vitals: Temp Pulse Resp BP Pulse Ox 97.3 F L 68 19 125/86 97 04/11/18 11:24 04/11/18 14:51 04/11/18 14:52 04/11/18 14:51 04/11/18 14:32 Plan Activity: fall precautions Weight Bearing Status: Weight Bear as Tolerated Diet: low salt Follow up with: PRIMARY CARE, [Primary Care Provider] - 7 Days Prescriptions: oxyCODONE /ACETAMINOPHEN [Percocet 5/325 mg] 1 tab PO Q4H PRN #10 tablet PRN Reason: Pain, Moderate (4-6) Polyethylene Glycol 3350 [Miralax 3350] 17 gm PO BID PRN #2 powd.pack PRN Reason: Constipation Sulfamethoxazole/Trimethoprim [Bactrim DS TAB] 1 each PO DAILY #30 tablet
[2018-04-11 16:58] VITALS: BP 131/57
[2018-04-11] MEDS ORDERED: LANOXIN PO SCH (17:00)
--- NOTE | 2018-04-13 13:45 | Vascular Lab Report ---
LOWER EXTREMITY ARTERIAL DUPLEX: REASON FOR EXAM: Peripheral arterial disease. COMMENTS ON THE RIGHT: Triphasic waveforms are seen proximally. Triphasic waveforms are seen distally. Monophasic waveforms are seen in the posterior tibial artery. No significant velocity gradients are identified. Small amount of plaque is identified. Findings are consistent with normal perfusion. Findings are consistent with the ability to heal distal wounds. COMMENTS ON THE LEFT: Triphasic waveforms are seen proximally. Monophasic waveforms are seen distally. The superficial femoral artery appears to be occluded. Scattered plaque is seen throughout. Findings are consistent with abnormal perfusion. Findings are not consistent with the ability to heal distal wounds. IMPRESSION: RIGHT: Monophasic posterior tibial artery flow. Essentially normal arterial flow in the remainder of the vessels. LEFT:Complete occlusion of the left superficial femoral artery. Flow was markedly diminished distally. Recommend further evaluation including angiography.
== END 2018-04-11 20:35 | DRG 291 ==
LOC: ED 21:16 → 4A 23:57
PROVIDERS: ADMIT Internal Medicine; ATTEND Family Medicine
PROC: 4A033R1 Measurement of Arterial Saturation, Peripheral, Percutaneous Approach (ICD-10-PCS; principal; 2018-04-06)
PROC: 5A09357 Assistance with Respiratory Ventilation, Less than 24 Consecutive Hours, Continuous Positive Airway Pressure (ICD-10-PCS; 2018-04-06)
DX: I11.0 Hypertensive heart disease with heart failure (principal); J96.01 Acute respiratory failure with hypoxia; B20 Human immunodeficiency virus [HIV] disease; N17.0 Acute kidney failure with tubular necrosis; J44.1 Chronic obstructive pulmonary disease with (acute) exacerbation; I50.23 Acute on chronic systolic (congestive) heart failure; I25.10 Atherosclerotic heart disease of native coronary artery without angina pectoris; F17.290 Nicotine dependence, other tobacco product, uncomplicated; I25.5 Ischemic cardiomyopathy; I70.218 Atherosclerosis of native arteries of extremities with intermittent claudication, other extremity; Z95.1 Presence of aortocoronary bypass graft; Z95.810 Presence of automatic (implantable) cardiac defibrillator; Z82.3 Family history of stroke; Z82.49 Family history of ischemic heart disease and other diseases of the circulatory system; Z88.0 Allergy status to penicillin; Z79.899 Other long term (current) drug therapy; Z79.51 Long term (current) use of inhaled steroids; Z79.82 Long term (current) use of aspirin; I25.2 Old myocardial infarction
CPT/HCPCS: 36415; 71045; 80048; 80162; 82803; 83880; 84484; 85007; 85025; 93005; 93010; 93925; 94640; 94644; 94760; 96374; 96375; 99406; G8978-GP; G8979-GP; G8987-GO; G8988-GO; G8989-GO; J1650; J1940; J1956; J2260; J2405; J2920; J2930; J3475; J7030; J7040

== ENCOUNTER 2018-04-26 00:39 | Inpatient (IN) | payer MEDICARE ==
[2018-04-26 02:16] LABS: Basophils # (Auto) 0.1 K/mm3 (0.0-0.1); Basophils % (Auto) 1.1 % (0.0-1.8); Eosinophils # (Auto) 0.7 K/mm3 (0.0-0.4); Eosinophils % (Auto) 13.6 % (0.0-4.3); Hematocrit 43.9 % (30.3-42.9); Hemoglobin 14.9 gm/dl (10.1-14.3); Lymphocytes # (Auto) 1.7 K/mm3 (1.2-5.4); Lymphocytes % (Auto) 34.5 % (13.4-35.0); Mean Corpuscular HGB Conc 34 % (30-34); Mean Corpuscular Hemoglobin 32 pg (28-32); Mean Corpuscular Volume 93 fl (79-97); Monocytes # (Auto) 0.4 K/mm3 (0.0-0.8); Monocytes % (Auto) 7.2 % (0.0-7.3); Platelet Count 173 K/mm3 (140-440); Red Blood Count 4.71 M/mm3 (3.65-5.03); Red Cell Distribution Width 14.5 % (13.2-15.2)
[2018-04-26 02:35] LABS: Albumin 3.9 g/dL (3.9-5); Calcium 9.5 mg/dL (8.4-10.2)
[2018-04-26 04:38] LABS: Bacteria,Urine 1+ /HPF (Negative); Bilirubin,Urine NEG (Negative); Blood,Urine NEG (Negative); Color,Urine Yellow (Yellow); Protein,Urine <15 mg/dL mg/dL (Negative); Urobilinogen,Urine < 2.0 mg/dL (<2.0)
[2018-04-26] MEDS ORDERED: NACL 0.9% 500 ML 250 ML IV ONE (06:37)
[2018-04-26] MEDS ORDERED: NACL 0.9% 1000 ML 1,000 ML IV SCH (07:00)
--- NOTE | 2018-04-26 08:51 | Cat Scan Report ---
CT ABDOMEN PELVIS WITHOUT CONTRAST: HISTORY: Diffuse abdominal pain. COMPARISON: none. TECHNIQUE: Helical CT in 1.25mm intervals without IV contrast. Sagittal and coronal reconstructions. FINDINGS: Lung bases: There is moderate cardiomegaly. A pacemaker device is partially imaged. Clear lung bases. Liver: Normal. Biliary system: Cholecystectomy. No biliary dilatation. Pancreas: Normal. Spleen: Normal. Kidneys/ureters/bladder: Normal. 1 cm simple cyst in the mid right kidney is noted. Adrenal glands: Normal. Aorta: Mild scattered calcifications. No aneurysm. Intestines: Within normal limits given no oral contrast was administered. Appendix: Normal. Pelvic viscera: Normal. Ascites: Trace pelvic ascites appears physiologic. No abscess or fluid collection. Adenopathy: None. Musculoskeletal: Normal. IMPRESSION: No acute process is identified in the abdomen or pelvis. Cardiomegaly.
[2018-04-26] MEDS ORDERED: PERCOCET 5/325 PO ONE ×2 (08:55→17:31)
--- NOTE | 2018-04-26 10:24 | Emergency Department Report ---
ED Abdominal Pain HPI - General Chief Complaint: Abdominal Pain Stated Complaint: ABD PAIN Time Seen by Provider: 04/26/18 06:30 Source: patient, EMS Mode of arrival: Stretcher Limitations: Other - History of Present Illness Initial Comments: Has had upper abdominal pain last couple days. It is constant. Says that her skin is more sensitive test painful over her abdomen and chest. No rashes noted. Afebrile. Says that she is on oxycodone for claudication. She scheduled to get vascular stents in her legs later this week. No diarrhea. History cholecystectomy. Severity scale (0 -10): 5 - Related Data Home Medications Medication Instructions Recorded Confirmed Last Taken Emtricitab/Rilpiviri/Tenof Ala 1 each PO DAILY 04/08/18 04/26/18 04/08/18 21:31 [Odefsey Tablet] Previous Rx's Medication Instructions Recorded Last Taken Type Allopurinol [Zyloprim] 100 mg PO QDAY #30 tablet 01/04/18 Unknown Rx Arformoterol Nebu [Brovana Nebu] 15 mcg IH Q12HRT #1 ml 01/04/18 Unknown Rx Aspirin [Aspirin TAB] 325 mg PO QDAY #30 tablet 01/04/18 Unknown Rx Budesonide [Pulmicort Respules] 0.5 mg IH Q12HRT #1 nebu 01/04/18 Unknown Rx Digoxin [Lanoxin] 0.25 mg PO DAILY #30 tablet 01/04/18 Unknown Rx ALBUTEROL Inhaler [ProAir HFA 2 puff IH QID PRN #2 can 01/06/18 Unknown Rx Inhaler] Acetaminophen [Acetaminophen TAB] 650 mg PO Q4H PRN tablet 04/11/18 Unknown Rx AtorvaSTATin [Lipitor] 40 mg PO QHS tablet 04/11/18 Unknown Rx Carvedilol [Coreg] 12.5 mg PO BID tablet 04/11/18 Unknown Rx Furosemide [Lasix TAB] 60 mg PO QDAY tablet 04/11/18 Unknown Rx Ipratropium/Albuterol Sulfate 1 ampul IH Q6HRT ampul.neb 04/11/18 Unknown Rx [DUONEB *Not for PRN Use*] Isosorb Dinit/Hydralazine [Bidil 1 each PO Q8HR tablet 04/11/18 Unknown Rx 20/37.5MG] Lisinopril [Zestril TAB] 5 mg PO QDAY tablet 04/11/18 Unknown Rx Metolazone [Zaroxolyn] 2.5 mg PO QDAY #30 tablet 04/11/18 Unknown Rx Nicotine [Habitrol] 21 mg TD 2200 patch 04/11/18 Unknown Rx Polyethylene Glycol 3350 [Miralax 17 gm PO BID PRN #2 powd.pack 04/11/18 Unknown Rx 3350] Potassium Chloride [K-Dur] 10 meq PO QDAY tablet 04/11/18 Unknown Rx Sulfamethoxazole/Trimethoprim 1 each PO DAILY #30 tablet 04/11/18 Unknown Rx [Bactrim DS TAB] Allergies Allergy/AdvReac Type Severity Reaction Status Date / Time Penicillins Allergy Unknown Verified 03/22/14 02:56 ED Review of Systems ROS: Stated complaint: ABD PAIN Other details as noted in HPI Constitutional: denies: chills, fever Eyes: denies: eye pain, eye discharge, vision change ENT: denies: ear pain, throat pain Respiratory: denies: cough, shortness of breath, wheezing Cardiovascular: other (chest tightness). denies: chest pain, palpitations Endocrine: no symptoms reported Gastrointestinal: abdominal pain, nausea. denies: diarrhea Genitourinary: denies: urgency, dysuria, discharge Musculoskeletal: denies: back pain, joint swelling, arthralgia Skin: denies: rash, lesions Neurological: denies: headache, weakness, paresthesias Psychiatric: denies: anxiety, depression Hematological/Lymphatic: denies: easy bleeding, easy bruising ED Past Medical Hx - Past Medical History Previous Medical History?: Yes Hx Hypertension: Yes (2002) Hx Heart Attack/AMI: Yes Hx Congestive Heart Failure: Yes (EF: 15%) Hx Diabetes: No Hx Asthma: Yes Hx COPD: Yes Hx HIV: Yes Additional medical history: Mitral Valve repair, Open Heart surgery 2 vessel, Defibrillator - Surgical History Hx Open Heart Surgery: Yes Hx Internal Defibrillator: Yes Hx Cholecystectomy: Yes Additional Surgical History: mitral valve repair, - Social History Smoking Status: Current Every Day Smoker Substance Use Type: Alcohol - Medications Home Medications: Home Medications Medication Instructions Recorded Confirmed Last Taken Type Allopurinol [Zyloprim] 100 mg PO QDAY #30 tablet 01/04/18 04/26/18 Unknown Rx Arformoterol Nebu [Brovana Nebu] 15 mcg IH Q12HRT #1 ml 01/04/18 04/26/18 Unknown Rx Aspirin [Aspirin TAB] 325 mg PO QDAY #30 tablet 01/04/18 04/26/18 Unknown Rx Budesonide [Pulmicort Respules] 0.5 mg IH Q12HRT #1 nebu 01/04/18 04/26/18 Unknown Rx Digoxin [Lanoxin] 0.25 mg PO DAILY #30 tablet 01/04/18 04/26/18 Unknown Rx ALBUTEROL Inhaler [ProAir HFA 2 puff IH QID PRN #2 can 01/06/18 04/26/18 Unknown Rx Inhaler] Emtricitab/Rilpiviri/Tenof Ala 1 each PO DAILY 04/08/18 04/26/18 04/08/18 21:31 History [Odefsey Tablet] Acetaminophen [Acetaminophen TAB] 650 mg PO Q4H PRN tablet 04/11/18 04/26/18 Unknown Rx AtorvaSTATin [Lipitor] 40 mg PO QHS tablet 04/11/18 04/26/18 Unknown Rx Carvedilol [Coreg] 12.5 mg PO BID tablet 04/11/18 04/26/18 Unknown Rx Furosemide [Lasix TAB] 60 mg PO QDAY tablet 04/11/18 04/26/18 Unknown Rx Ipratropium/Albuterol Sulfate 1 ampul IH Q6HRT ampul.neb 04/11/18 04/26/18 Unknown Rx [DUONEB *Not for PRN Use*] Isosorb Dinit/Hydralazine [Bidil 1 each PO Q8HR tablet 04/11/18 04/26/18 Unknown Rx 20/37.5MG] Lisinopril [Zestril TAB] 5 mg PO QDAY tablet 04/11/18 04/26/18 Unknown Rx Metolazone [Zaroxolyn] 2.5 mg PO QDAY #30 tablet 04/11/18 04/26/18 Unknown Rx Nicotine [Habitrol] 21 mg TD 2200 patch 04/11/18 04/26/18 Unknown Rx Polyethylene Glycol 3350 [Miralax 17 gm PO BID PRN #2 powd.pack 04/11/18 Unknown Rx 3350] Potassium Chloride [K-Dur] 10 meq PO QDAY tablet 04/11/18 04/26/18 Unknown Rx Sulfamethoxazole/Trimethoprim 1 each PO DAILY #30 tablet 04/11/18 04/26/18 Unknown Rx [Bactrim DS TAB] ED Physical Exam - General Limitations: Other General appearance: alert, in no apparent distress - Head Head exam: Present: atraumatic, normocephalic - Eye Eye exam: Present: normal appearance - ENT ENT exam: Present: mucous membranes moist - Neck Neck exam: Present: normal inspection - Respiratory Respiratory exam: Present: normal lung sounds bilaterally, chest wall tenderness. Absent: respiratory distress - Cardiovascular Cardiovascular Exam: Present: regular rate, normal rhythm. Absent: systolic murmur, diastolic murmur, rubs, gallop - GI/Abdominal GI/Abdominal exam: Present: soft, tenderness (generalized), normal bowel sounds - Extremities Exam Extremities exam: Present: normal inspection - Back Exam Back exam: Present: normal inspection - Neurological Exam Neurological exam: Present: alert, oriented X3 - Psychiatric Psychiatric exam: Present: normal affect, normal mood - Skin Skin exam: Present: warm, dry, intact, normal color. Absent: rash ED Course Vital Signs 04/26/18 04/26/18 04/26/18 01:44 01:45 01:57 Temperature 98.2 F Pulse Rate 75 Respiratory 18 Rate Blood Pressure 100/50 Blood Pressure 100/50 [Left] O2 Sat by Pulse 98 97 97 Oximetry 04/26/18 04/26/18 04/26/18 02:00 02:16 02:30 Temperature Pulse Rate 64 66 67 Respiratory 14 15 13 Rate Blood Pressure 100/50 86/43 88/44 Blood Pressure [Left] O2 Sat by Pulse 98 98 98 Oximetry 04/26/18 04/26/18 04/26/18 02:45 03:00 03:15 Temperature Pulse Rate 70 76 69 Respiratory 12 17 12 Rate Blood Pressure 82/43 89/56 85/43 Blood Pressure [Left] O2 Sat by Pulse 99 97 98 Oximetry 04/26/18 04/26/18 04/26/18 03:30 03:53 04:01 Temperature Pulse Rate 63 72 68 Respiratory 15 22 15 Rate Blood Pressure 83/50 93/44 83/37 Blood Pressure [Left] O2 Sat by Pulse 95 97 97 Oximetry 04/26/18 04/26/18 04/26/18 04:15 04:31 04:34 Temperature Pulse Rate 71 67 Respiratory 17 14 16 Rate Blood Pressure 83/37 83/50 Blood Pressure [Left] O2 Sat by Pulse 98 98 99 Oximetry 04/26/18 04/26/18 04/26/18 04:45 05:00 05:15 Temperature Pulse Rate 65 62 64 Respiratory 14 13 12 Rate Blood Pressure 83/50 107/54 107/54 Blood Pressure [Left] O2 Sat by Pulse 96 95 96 Oximetry 04/26/18 04/26/18 04/26/18 05:30 05:46 06:00 Temperature Pulse Rate 64 64 63 Respiratory 11 L 10 L 11 L Rate Blood Pressure 107/54 107/54 105/58 Blood Pressure [Left] O2 Sat by Pulse 98 100 97 Oximetry 04/26/18 04/26/18 06:16 08:25 Temperature Pulse Rate 61 56 L Respiratory 11 L 16 Rate Blood Pressure 105/58 Blood Pressure 95/49 [Left] O2 Sat by Pulse 97 98 Oximetry ED Medical Decision Making - Lab Data Result diagrams: 04/26/18 02:05 04/26/18 02:05 - Radiology Data Radiology results: report reviewed, image reviewed - Medical Decision Making 57-year-old female with past medical history of CHF with an EF of 15%, claudication, vaso-occlusive disease that presents to the ER with abdominal pain. Vital stable on presentation. Patient is well-appearing. Endorsing generalized abdominal and chest wall tenderness. Labs were significant for creatinine of 3.1. It has been normal in the past. She is given a bolus of 250 mL normal saline and placed on continuous infusion. CT abdomen and pelvis showed no acute abnormalities. Given YANELY in the setting of profound depressed ejection fraction, patient will be admitted for further management. Unsure exactly etiology of the patient's pain. Lactate has been sent off to exclude low flow possibilitie. Pt will be admitted for further management. Critical care attestation.: If time is entered above; I have spent that time in minutes in the direct care of this critically ill patient, excluding procedure time. ED Disposition Clinical Impression: Abdominal pain, YANELY (acute kidney injury) Disposition: OP ADMIT IP TO THIS HOSP Is pt being admited?: Yes Condition: Stable Instructions: Abdominal Pain (ED) Referrals: PRIMARY CARE, [Primary Care Provider] - 3-5 Days
--- NOTE | 2018-04-26 13:39 | History and Physical Report ---
History of Present Illness Date of examination: 04/26/18 Date of admission: 04/26/18 10:30 Chief complaint: Abdominal pain History of present illness: 57-year-old -[place] female patient with multiple medical problems well known to us service multiple admissions in the past the last one 2 weeks ago presented to the emergency room with upper abdominal pain of 2 days' duration, Patient reports the pain is intermittent sometimes colicky grates between 4-5/10 , denies nausea or vomiting or diarrhea Patient also has lower extremity claudication scheduled to get vascular stents sometime this week Patient denies headache dizziness weakness or numbness Denies chest pain or palpitations Initial workup, revealed acute kidney injury Past History Past Medical History: CAD, heart failure, HIV/AIDS, hypertension, hyperlipidemia , PVD, renal failure Past Surgical History: CABG, Other (the ICD) Social history: lives with family, smoking, full code. denies: alcohol abuse, prescription drug abuse Family history: hypertension Medications and Allergies Allergies Allergy/AdvReac Type Severity Reaction Status Date / Time Penicillins Allergy Unknown Verified 03/22/14 02:56 Home Medications Medication Instructions Recorded Confirmed Last Taken Type Allopurinol [Zyloprim] 100 mg PO QDAY #30 tablet 01/04/18 04/26/18 Unknown Rx Arformoterol Nebu [Brovana Nebu] 15 mcg IH Q12HRT #1 ml 01/04/18 04/26/18 Unknown Rx Aspirin [Aspirin TAB] 325 mg PO QDAY #30 tablet 01/04/18 04/26/18 Unknown Rx Budesonide [Pulmicort Respules] 0.5 mg IH Q12HRT #1 nebu 01/04/18 04/26/18 Unknown Rx Digoxin [Lanoxin] 0.25 mg PO DAILY #30 tablet 01/04/18 04/26/18 Unknown Rx ALBUTEROL Inhaler [ProAir HFA 2 puff IH QID PRN #2 can 01/06/18 04/26/18 Unknown Rx Inhaler] Emtricitab/Rilpiviri/Tenof Ala 1 each PO DAILY 04/08/18 04/26/18 04/08/18 21:31 History [Odefsey Tablet] Acetaminophen [Acetaminophen TAB] 650 mg PO Q4H PRN tablet 04/11/18 04/26/18 Unknown Rx AtorvaSTATin [Lipitor] 40 mg PO QHS tablet 04/11/18 04/26/18 Unknown Rx Carvedilol [Coreg] 12.5 mg PO BID tablet 04/11/18 04/26/18 Unknown Rx Furosemide [Lasix TAB] 60 mg PO QDAY tablet 04/11/18 04/26/18 Unknown Rx Ipratropium/Albuterol Sulfate 1 ampul IH Q6HRT ampul.neb 04/11/18 04/26/18 Unknown Rx [DUONEB *Not for PRN Use*] Isosorb Dinit/Hydralazine [Bidil 1 each PO Q8HR tablet 04/11/18 04/26/18 Unknown Rx 20/37.5MG] Lisinopril [Zestril TAB] 5 mg PO QDAY tablet 04/11/18 04/26/18 Unknown Rx Metolazone [Zaroxolyn] 2.5 mg PO QDAY #30 tablet 04/11/18 04/26/18 Unknown Rx Nicotine [Habitrol] 21 mg TD 2200 patch 04/11/18 04/26/18 Unknown Rx Polyethylene Glycol 3350 [Miralax 17 gm PO BID PRN #2 powd.pack 04/11/18 Unknown Rx 3350] Potassium Chloride [K-Dur] 10 meq PO QDAY tablet 04/11/18 04/26/18 Unknown Rx Sulfamethoxazole/Trimethoprim 1 each PO DAILY #30 tablet 04/11/18 04/26/18 Unknown Rx [Bactrim DS TAB] Active Meds: Active Medications Sodium Chloride (Nacl 0.9% 1000 Ml) 1,000 mls @ 200 mls/hr IV DIRECT MELLY Stop: 04/26/18 16:59 Review of Systems Constitutional: fatigue, weakness, no weight loss, no weight gain, no fever, no chills Ears, nose, mouth and throat: no nasal congestion, no nasal discharge Cardiovascular: lightheadedness, shortness of breath, no chest pain, no orthopnea Respiratory: shortness of breath, no cough with sputum, no hemoptysis Gastrointestinal: abdominal pain, no nausea, no vomiting Genitourinary Female: no pelvic pain, no dysuria Musculoskeletal: no myalgias, no arthritis Integumentary: no rash, no lesions Neurological: weakness, numbness Psychiatric: no anxiety, no depression Endocrine: no cold intolerance, no heat intolerance, no polydipsia, no polyuria Hematologic/Lymphatic: no easy bruising, no easy bleeding Allergic/Immunologic: no urticaria, no allergic rhinitis Exam - Constitutional Vitals: Temp Pulse Resp BP Pulse Ox 98.2 F 56 L 16 95/49 98 04/26/18 01:57 04/26/18 08:25 04/26/18 08:25 04/26/18 08:25 04/26/18 08:25 General appearance: Present: no acute distress, well-nourished - EENT Eyes: Present: PERRL, EOM intact - Neck Neck: Present: supple, normal ROM - Respiratory Respiratory effort: normal Respiratory: bilateral: diminished, negative: rales, rhonchi, wheezing - Cardiovascular Rhythm: regular Heart Sounds: Present: S1 & S2 - Extremities Extremities: no ischemia, No edema Peripheral Pulses: within normal limits - Abdominal General gastrointestinal: Present: soft, non-tender, non-distended, normal bowel sounds - Integumentary Integumentary: Present: clear, warm - Musculoskeletal Musculoskeletal: strength equal bilaterally, generalized weakness - Psychiatric Psychiatric: appropriate mood/affect, cooperative - Neurologic Neurologic: CNII-XII intact, moves all extremities Results - Labs CBC & Chem 7: 04/26/18 02:05 04/26/18 02:05 Labs: Abnormal lab results 04/26/18 04/26/18 04/26/18 Range/Units 02:05 02:05 02:50 Hgb 14.9 H (10.1-14.3) gm/dl Hct 43.9 H (30.3-42.9) % Eos % (Auto) 13.6 H (0.0-4.3) % Eos # 0.7 H (0.0-0.4) K/mm3 Sodium 130 L (137-145) mmol/L Chloride 85.2 L (98-107) mmol/L Carbon Dioxide 34 H (22-30) mmol/L BUN 40 H (7-17) mg/dL Creatinine 3.1 H (0.7-1.2) mg/dL Glucose 104 H (65-100) mg/dL NT-Pro-B Natriuret Pep 1216 H (0-900) pg/mL Total Protein 6.1 L (6.3-8.2) g/dL Assessment and Plan --Acute kidney injury; secondary to ATN Gentle hydration, closely monitor renal function, avoid nephrotoxin --History of coronary artery disease status post CABG Mitral valve repair in 2002, continue current cardiac medications Concerta cardiology evaluation if needed --Status post biventricular ICD; stable --Ischemic cardiomyopathy; ejection fraction 10-15% Continue current anti-failure medications --History of HIV; resume home antiretrovirals, supportive care, ID if needed --DVT prophylaxis; with Lovenox --Ongoing tobacco use; smoking cessation counseling done advised nicotine patch as needed Closely monitor the patient and adjust management as needed
[2018-04-26] MEDS ORDERED: PROAIR IH PRN (13:41)
[2018-04-26] MEDS ORDERED: PROVENTIL IH PRN (14:38)
[2018-04-26] MEDS: DUONEB *Not for PRN Use IH SCH ×3 (14:52→19:34)
[2018-04-26] MEDS ORDERED: PERCOCET 5/325 ONE (17:25)
[2018-04-26] MEDS: BROVANA NEBU IH SCH (19:22)
[2018-04-26] MEDS: PULMICORT IH SCH (19:23)
[2018-04-26] MEDS: COREG PO SCH (21:53)
[2018-04-26] MEDS: BIDIL 20/37.5MG PO SCH (21:54)
[2018-04-26] MEDS: HABITROL TD SCH (22:00)
[2018-04-27] MEDS ORDERED: PERCOCET 5/325 PO ONE (00:18)
[2018-04-27] MEDS: PULMICORT IH SCH ×2 (08:10→20:57)
[2018-04-27] MEDS: BROVANA NEBU IH SCH ×2 (08:11→20:57)
[2018-04-27] MEDS: DUONEB *Not for PRN Use IH SCH ×2 (08:15→13:02)
--- NOTE | 2018-04-27 09:45 | Progress Note ---
Assessment and Plan Assessment and plan: --Chronic pain syndrome; patient complains of generalized body pains Reports tenderness on touching all over the body, request for more pain medications Continue supportive care --Acute kidney injury; secondary to ATN Gentle hydration, closely monitor renal function, avoid nephrotoxin Nephrology evaluation as needed cardiology following --History of coronary artery disease status post CABG Mitral valve repair in 2002, continue current cardiac medications Consider cardiology evaluation if needed --Peripheral vascular disease; patient complains of excruciating pain in both lower extremities Patient states she has appointment tomorrow to see vascular, request to see vascular today --Status post biventricular ICD; stable --Ischemic cardiomyopathy; ejection fraction 10-15% Continue current anti-failure medications --History of HIV; resume home antiretrovirals, supportive care, ID if needed --DVT prophylaxis; with Lovenox --Ongoing tobacco use; smoking cessation counseling done advised nicotine patch as needed Closely monitor the patient and adjust management as needed End of case reviewed with the patient and her nurse History Interval history: Patient seen and evaluated medical records reviewed Patient complains of generalized body pains and requests more pain medications Patient was very loud verbal. Wants to be seen by all her doctors Complains of chest pain and generalized body pain and shooting pains in bilateral lower extremities. Alert awake oriented 3 In mild distress, crying Hospitalist Physical - Constitutional Vitals: Temp Pulse Resp BP Pulse Ox 97.8 F 60 17 102/53 94 04/27/18 07:14 04/27/18 08:11 04/27/18 08:11 04/27/18 07:14 04/26/18 23:14 General appearance: Present: mild distress, well-nourished - EENT Eyes: Present: PERRL, EOM intact - Neck Neck: Present: supple, normal ROM - Respiratory Respiratory effort: normal Respiratory: bilateral: diminished, negative: rales, rhonchi, wheezing - Cardiovascular Rhythm: regular Heart Sounds: Present: S1 & S2 - Extremities Extremities: no ischemia, No edema - Abdominal General gastrointestinal: soft, non-tender, non-distended, normal bowel sounds - Integumentary Integumentary: Present: clear, warm - Psychiatric Psychiatric: appropriate mood/affect, cooperative - Neurologic Neurologic: CNII-XII intact, moves all extremities Results - Labs CBC & Chem 7: 04/26/18 02:05 04/26/18 02:05 Labs: Laboratory Last Values WBC 5.0 K/mm3 (4.5-11.0) 04/26/18 02:05 RBC 4.71 M/mm3 (3.65-5.03) 04/26/18 02:05 Hgb 14.9 gm/dl (10.1-14.3) H 04/26/18 02:05 Hct 43.9 % (30.3-42.9) H 04/26/18 02:05 MCV 93 fl (79-97) 04/26/18 02:05 MCH 32 pg (28-32) 04/26/18 02:05 MCHC 34 % (30-34) 04/26/18 02:05 RDW 14.5 % (13.2-15.2) 04/26/18 02:05 Plt Count 173 K/mm3 (140-440) 04/26/18 02:05 Lymph % (Auto) 34.5 % (13.4-35.0) 04/26/18 02:05 [place] % (Auto) 7.2 % (0.0-7.3) 04/26/18 02:05 Eos % (Auto) 13.6 % (0.0-4.3) H 04/26/18 02:05 Baso % (Auto) 1.1 % (0.0-1.8) 04/26/18 02:05 Lymph # 1.7 K/mm3 (1.2-5.4) 04/26/18 02:05 [place] # 0.4 K/mm3 (0.0-0.8) 04/26/18 02:05 Eos # 0.7 K/mm3 (0.0-0.4) H 04/26/18 02:05 Baso # 0.1 K/mm3 (0.0-0.1) 04/26/18 02:05 Seg Neutrophils % 43.6 % (40.0-70.0) 04/26/18 02:05 Seg Neutrophils # 2.2 K/mm3 (1.8-7.7) 04/26/18 02:05 Sodium 130 mmol/L (137-145) L 04/26/18 02:05 Potassium 4.5 mmol/L (3.6-5.0) 04/26/18 02:05 Chloride 85.2 mmol/L (98-107) L 04/26/18 02:05 Carbon Dioxide 34 mmol/L (22-30) H 04/26/18 02:05 Anion Gap 15 mmol/L 04/26/18 02:05 BUN 40 mg/dL (7-17) H 04/26/18 02:05 Creatinine 3.1 mg/dL (0.7-1.2) H 04/26/18 02:05 Estimated GFR 19 ml/min 04/26/18 02:05 BUN/Creatinine Ratio 13 % 04/26/18 02:05 Glucose 104 mg/dL (65-100) H 04/26/18 02:05 Lactic Acid 0.90 mmol/L (0.7-2.0) 04/26/18 10:46 Calcium 9.5 mg/dL (8.4-10.2) 04/26/18 02:05 Total Bilirubin 0.40 mg/dL (0.1-1.2) 04/26/18 02:05 AST 26 units/L (5-40) 04/26/18 02:05 ALT 29 units/L (7-56) 04/26/18 02:05 Alkaline Phosphatase 86 units/L (35-129) 04/26/18 02:05 NT-Pro-B Natriuret Pep 1216 pg/mL (0-900) H 04/26/18 02:50 Total Protein 6.1 g/dL (6.3-8.2) L 04/26/18 02:05 Albumin 3.9 g/dL (3.9-5) 04/26/18 02:05 Albumin/Globulin Ratio 1.8 % 04/26/18 02:05 Urine Color Yellow (Yellow) 04/26/18 03:52 Urine Turbidity Clear (Clear) 04/26/18 03:52 Urine pH 5.0 (5.0-7.0) 04/26/18 03:52 Ur Specific [place] 1.009 (1.003-1.030) 04/26/18 03:52 Urine Protein <15 mg/dl mg/dL (Negative) 04/26/18 03:52 Urine Glucose (UA) Neg mg/dL (Negative) 04/26/18 03:52 Urine Ketones Neg mg/dL (Negative) 04/26/18 03:52 Urine Blood Neg (Negative) 04/26/18 03:52 Urine Nitrite Neg (Negative) 04/26/18 03:52 Urine Bilirubin Neg (Negative) 04/26/18 03:52 Urine Urobilinogen < 2.0 mg/dL (<2.0) 04/26/18 03:52 Ur Leukocyte Esterase Tr (Negative) 04/26/18 03:52 Urine WBC (Auto) 2.0 /HPF (0.0-6.0) 04/26/18 03:52 Urine RBC (Auto) 1.0 /HPF (0.0-6.0) 04/26/18 03:52 U Epithel Cells (Auto) 1.0 /HPF (0-13.0) 04/26/18 03:52 Urine Bacteria (Auto) 1+ /HPF (Negative) 04/26/18 03:52
[2018-04-27] MEDS: BACTRIM DS PO SCH (09:51)
[2018-04-27] MEDS: K-DUR PO SCH (09:51)
[2018-04-27] MEDS: ZESTRIL PO SCH ×2 (09:51→10:35)
[2018-04-27] MEDS: ASPIRIN PO SCH (09:51)
[2018-04-27] MEDS: LANOXIN PO SCH ×2 (09:52→10:35)
[2018-04-27] MEDS: COREG PO SCH ×3 (09:52→23:02)
[2018-04-27] MEDS: ZYLOPRIM PO SCH (09:52)
--- NOTE | 2018-04-27 09:58 | Progress Note ---
Hospitalist Physical - Constitutional Vitals: Temp Pulse Resp BP Pulse Ox 97.8 F 60 17 102/53 94 04/27/18 07:14 04/27/18 08:11 04/27/18 08:11 04/27/18 07:14 04/26/18 23:14 General appearance: Present: no acute distress, well-nourished Results - Labs CBC & Chem 7: 04/26/18 02:05 04/26/18 02:05 Labs: Laboratory Last Values WBC 5.0 K/mm3 (4.5-11.0) 04/26/18 02:05 RBC 4.71 M/mm3 (3.65-5.03) 04/26/18 02:05 Hgb 14.9 gm/dl (10.1-14.3) H 04/26/18 02:05 Hct 43.9 % (30.3-42.9) H 04/26/18 02:05 MCV 93 fl (79-97) 04/26/18 02:05 MCH 32 pg (28-32) 04/26/18 02:05 MCHC 34 % (30-34) 04/26/18 02:05 RDW 14.5 % (13.2-15.2) 04/26/18 02:05 Plt Count 173 K/mm3 (140-440) 04/26/18 02:05 Lymph % (Auto) 34.5 % (13.4-35.0) 04/26/18 02:05 [place] % (Auto) 7.2 % (0.0-7.3) 04/26/18 02:05 Eos % (Auto) 13.6 % (0.0-4.3) H 04/26/18 02:05 Baso % (Auto) 1.1 % (0.0-1.8) 04/26/18 02:05 Lymph # 1.7 K/mm3 (1.2-5.4) 04/26/18 02:05 [place] # 0.4 K/mm3 (0.0-0.8) 04/26/18 02:05 Eos # 0.7 K/mm3 (0.0-0.4) H 04/26/18 02:05 Baso # 0.1 K/mm3 (0.0-0.1) 04/26/18 02:05 Seg Neutrophils % 43.6 % (40.0-70.0) 04/26/18 02:05 Seg Neutrophils # 2.2 K/mm3 (1.8-7.7) 04/26/18 02:05 Sodium 130 mmol/L (137-145) L 04/26/18 02:05 Potassium 4.5 mmol/L (3.6-5.0) 04/26/18 02:05 Chloride 85.2 mmol/L (98-107) L 04/26/18 02:05 Carbon Dioxide 34 mmol/L (22-30) H 04/26/18 02:05 Anion Gap 15 mmol/L 04/26/18 02:05 BUN 40 mg/dL (7-17) H 04/26/18 02:05 Creatinine 3.1 mg/dL (0.7-1.2) H 04/26/18 02:05 Estimated GFR 19 ml/min 04/26/18 02:05 BUN/Creatinine Ratio 13 % 04/26/18 02:05 Glucose 104 mg/dL (65-100) H 04/26/18 02:05 Lactic Acid 0.90 mmol/L (0.7-2.0) 04/26/18 10:46 Calcium 9.5 mg/dL (8.4-10.2) 04/26/18 02:05 Total Bilirubin 0.40 mg/dL (0.1-1.2) 04/26/18 02:05 AST 26 units/L (5-40) 04/26/18 02:05 ALT 29 units/L (7-56) 04/26/18 02:05 Alkaline Phosphatase 86 units/L (35-129) 04/26/18 02:05 NT-Pro-B Natriuret Pep 1216 pg/mL (0-900) H 04/26/18 02:50 Total Protein 6.1 g/dL (6.3-8.2) L 04/26/18 02:05 Albumin 3.9 g/dL (3.9-5) 04/26/18 02:05 Albumin/Globulin Ratio 1.8 % 04/26/18 02:05 Urine Color Yellow (Yellow) 04/26/18 03:52 Urine Turbidity Clear (Clear) 04/26/18 03:52 Urine pH 5.0 (5.0-7.0) 04/26/18 03:52 Ur Specific [place] 1.009 (1.003-1.030) 04/26/18 03:52 Urine Protein <15 mg/dl mg/dL (Negative) 04/26/18 03:52 Urine Glucose (UA) Neg mg/dL (Negative) 04/26/18 03:52 Urine Ketones Neg mg/dL (Negative) 04/26/18 03:52 Urine Blood Neg (Negative) 04/26/18 03:52 Urine Nitrite Neg (Negative) 04/26/18 03:52 Urine Bilirubin Neg (Negative) 04/26/18 03:52 Urine Urobilinogen < 2.0 mg/dL (<2.0) 04/26/18 03:52 Ur Leukocyte Esterase Tr (Negative) 04/26/18 03:52 Urine WBC (Auto) 2.0 /HPF (0.0-6.0) 04/26/18 03:52 Urine RBC (Auto) 1.0 /HPF (0.0-6.0) 04/26/18 03:52 U Epithel Cells (Auto) 1.0 /HPF (0-13.0) 04/26/18 03:52 Urine Bacteria (Auto) 1+ /HPF (Negative) 04/26/18 03:52
[2018-04-27] MEDS ORDERED: ZAROXOLYN PO SCH (10:00)
[2018-04-27] MEDS ORDERED: LASIX PO SCH (10:00)
[2018-04-27] MEDS ORDERED: NON-FORMULARY (Emtricitab/Rilpiviri/Tenof Ala [Odefsey Tablet] 1 EACH) PO SCH (10:00)
[2018-04-27] MEDS ORDERED: LASIX IV SCH (10:00)
[2018-04-27] MEDS: MORPHINE IV PRN ×2 (11:53→18:00)
[2018-04-27] MEDS: BIDIL 20/37.5MG PO SCH ×2 (14:17→23:04)
--- NOTE | 2018-04-27 17:19 | Consultation ---
History of Present Illness - Reason for Consult Consult date: 04/27/18 Peripheral Arterial Disease Requesting physician: ROLANDO SUNG - History of Present Illness This is a 57-year-old -[place] female that was admitted via the emergency room on 04/26/2018 due to abdominal pain. Initial workup revealed acute kidney injury. This patient has had multiple recent admissions. During her last, visit she had an arterial duplex which confirmed peripheral arterial disease. Her primary symptoms were consistent with claudication, but intervention was delayed due to acute renal failure. The patient was advised to follow up in our office as an outpatient, but has been readmitted prior to follow-up. At this point she complains of diffuse body aches including the lower extremity discomfort. Therefore, a vascular surgery consult has been requested to further evaluate. The patient describes pain starting at her shoulders proceeding down through her chest and abdomen and into her legs. She is unable to fully qualify the discomfort. She states that the pain she is currently having with her legs is essentially the same as the rest of her body. Her prior symptoms were primarily short distance claudication. Past History Past Medical History: CAD, heart failure, HIV/AIDS, hypertension, hyperlipidemia , PVD, renal failure Past Surgical History: cholecystectomy, CABG (double bypass), Other (the ICD, removal of ovarian cyst) Social history: lives with family, smoking, full code. denies: alcohol abuse, prescription drug abuse Family history: hypertension, stroke Medications and Allergies Allergies Allergy/AdvReac Type Severity Reaction Status Date / Time Penicillins Allergy Unknown Verified 03/22/14 02:56 Home Medications Medication Instructions Recorded Confirmed Last Taken Type Allopurinol [Zyloprim] 100 mg PO QDAY #30 tablet 01/04/18 04/26/18 Unknown Rx Arformoterol Nebu [Brovana Nebu] 15 mcg IH Q12HRT #1 ml 01/04/18 04/26/18 Unknown Rx Aspirin [Aspirin TAB] 325 mg PO QDAY #30 tablet 01/04/18 04/26/18 Unknown Rx Budesonide [Pulmicort Respules] 0.5 mg IH Q12HRT #1 nebu 01/04/18 04/26/18 Unknown Rx Digoxin [Lanoxin] 0.25 mg PO DAILY #30 tablet 01/04/18 04/26/18 Unknown Rx ALBUTEROL Inhaler [ProAir HFA 2 puff IH QID PRN #2 can 01/06/18 04/26/18 Unknown Rx Inhaler] Emtricitab/Rilpiviri/Tenof Ala 1 each PO DAILY 04/08/18 04/26/18 04/08/18 21:31 History [Odefsey Tablet] Acetaminophen [Acetaminophen TAB] 650 mg PO Q4H PRN tablet 04/11/18 04/26/18 Unknown Rx AtorvaSTATin [Lipitor] 40 mg PO QHS tablet 04/11/18 04/26/18 Unknown Rx Carvedilol [Coreg] 12.5 mg PO BID tablet 04/11/18 04/26/18 Unknown Rx Furosemide [Lasix TAB] 60 mg PO QDAY tablet 04/11/18 04/26/18 Unknown Rx Ipratropium/Albuterol Sulfate 1 ampul IH Q6HRT ampul.neb 04/11/18 04/26/18 Unknown Rx [DUONEB *Not for PRN Use*] Isosorb Dinit/Hydralazine [Bidil 1 each PO Q8HR tablet 04/11/18 04/26/18 Unknown Rx 20/37.5MG] Lisinopril [Zestril TAB] 5 mg PO QDAY tablet 04/11/18 04/26/18 Unknown Rx Metolazone [Zaroxolyn] 2.5 mg PO QDAY #30 tablet 04/11/18 04/26/18 Unknown Rx Nicotine [Habitrol] 21 mg TD 2200 patch 04/11/18 04/26/18 Unknown Rx Polyethylene Glycol 3350 [Miralax 17 gm PO BID PRN #2 powd.pack 04/11/18 Unknown Rx 3350] Potassium Chloride [K-Dur] 10 meq PO QDAY tablet 04/11/18 04/26/18 Unknown Rx Sulfamethoxazole/Trimethoprim 1 each PO DAILY #30 tablet 04/11/18 04/26/18 Unknown Rx [Bactrim DS TAB] Active Meds: Active Medications Albuterol (Proventil) 2.5 mg IH Q4HRT PRN PRN Reason: Shortness Of Breath Albuterol/Ipratropium (Duoneb *Not For Prn Use*) 1 ampul IH TIDRT MELLY Last Admin: 04/27/18 13:02 Dose: 1 ampul Allopurinol (Zyloprim) 100 mg PO QDAY [facility] Last Admin: 04/27/18 09:52 Dose: 100 mg Arformoterol Tartrate (Brovana Nebu) 15 mcg IH Q12HRT [facility] Last Admin: 04/27/18 08:11 Dose: 15 mcg Aspirin (Aspirin) 325 mg PO QDAY [facility] Last Admin: 04/27/18 09:51 Dose: 325 mg Atorvastatin Calcium (Lipitor) 40 mg PO QHS [facility] Last Admin: 04/26/18 21:53 Dose: 40 mg Budesonide (Pulmicort) 0.5 mg IH Q12HRT [facility] Last Admin: 04/27/18 08:10 Dose: 0.5 mg Carvedilol (Coreg) 12.5 mg PO BID [facility] Last Admin: 04/27/18 10:33 Dose: Not Given Digoxin (Lanoxin) 0.25 mg PO DAILY [facility] Last Admin: 04/27/18 10:35 Dose: Not Given Furosemide (Lasix) 20 mg IV QDAY [facility] Last Admin: 04/27/18 09:51 Dose: 20 mg Isosorbide Dinitrate/Hydralazine (Bidil 20/37.5mg) 1 each PO Q8HR [facility] Last Admin: 04/26/18 21:54 Dose: 1 each Lisinopril (Zestril) 5 mg PO QDAY [facility] Last Admin: 04/27/18 10:35 Dose: Not Given Metolazone (Zaroxolyn) 2.5 mg PO QDAY [facility] Last Admin: 04/27/18 09:53 Dose: 2.5 mg Miscellaneous Medication (Emtricitab/Rilpiviri/Tenof Ala [Odefsey Tablet]) 1 each PO DAILY [facility] Morphine Sulfate (Morphine) 2 mg IV Q6H PRN PRN Reason: Pain, Moderate (4-6) Last Admin: 04/27/18 11:53 Dose: 2 mg Nicotine (Habitrol) 21 mg TD 2200 [facility] Last Admin: 04/26/18 22:00 Dose: Not Given Oxycodone/Acetaminophen (Percocet 5/325) 1 tab PO Q6H PRN PRN Reason: Pain, Moderate (4-6) Potassium Chloride (K-Dur) 10 meq PO QDAY [facility] Last Admin: 04/27/18 09:51 Dose: 10 meq Trimethoprim/Sulfamethoxazole (Bactrim Ds) 1 each PO DAILY [facility] Last Admin: 04/27/18 09:51 Dose: Not Given Review of Systems All systems: negative Exam - Constitutional Vitals: Temp Pulse Resp BP Pulse Ox 97.6 F 60 16 124/77 95 04/27/18 12:14 04/27/18 13:04 04/27/18 13:04 04/27/18 12:14 04/27/18 12:14 General appearance: Present: no acute distress - EENT Eyes: Present: EOM intact ENT: hearing intact - Neck Neck: Present: supple - Respiratory Respiratory effort: normal - Extremities Extremities: no ischemia, normal temperature Extremity abnormal: pulses diminished (unable to palpate pedal pulses bilaterally), other (no skin ulcerations appreciated) - Psychiatric Psychiatric: appropriate mood/affect, intact judgment & insight, cooperative - Neurologic Neurologic: no focal deficits Results - Labs CBC & Chem 7: 04/26/18 02:05 04/26/18 02:05 Assessment and Plan This patient was admitted with abdominal pain. She now describes the pain as a diffuse all over body ache which includes her lower extremities. This does not appear to be related to her underlying peripheral arterial disease. Previous arterial duplex suggests fairly significant arterial disease, but her symptoms were limited to the short distance claudication. Suspect the patient will require intervention once her kidney function has improved. I encouraged the patient follow up in our office as an outpatient. Patient stated understanding and agrees to comply. - Patient Problems (1) Atherosclerosis of [place] arteries of extremity with intermittent claudication Current Visit: No Status: Acute (2) YANELY (acute kidney injury) Current Visit: Yes Status: Acute (3) HIV (human immunodeficiency virus infection) Current Visit: No Status: Chronic (4) HTN (hypertension) Current Visit: No Status: Chronic Qualifiers: Hypertension type: essential hypertension Qualified Code(s): I10 - Essential (primary) hypertension (5) COPD (chronic obstructive pulmonary disease) Current Visit: No Status: Chronic
--- NOTE | 2018-04-27 21:05 | Ultrasound Report ---
FINAL REPORT PROCEDURE: US ABDOMEN COMPLETE TECHNIQUE: Real-time sonography in multiple planes of the abdomen was performed with image documentation. CPT 44104 HISTORY: Abdominal pain COMPARISON: No prior studies are available for comparison. FINDINGS: Liver: Normal size and echotexture with no evidence of cystic or solid mass lesions. Gallbladder: Not visualized consistent with cholecystectomy. Intrahepatic bile ducts: Normal caliber . Extrahepatic bile ducts: Normal caliber. Common duct measures 3 millimeters in caliber. Pancreas: Visualized pancreatic head and body demonstrate normal echotexture.. Aorta: Proximal aorta measures 1.8 centimeters in caliber. Mid and distal aorta is not well visualized due to bowel gas.. IVC: Proximal IVC is of normal caliber. Mid and distal IVC not well visualized due to bowel gas.. RIGHT kidney: Normal echotexture. No focal renal mass, calculus, or hydronephrosis. Length: 11 x 5 x 4cm. LEFT kidney: Normal echotexture. No focal renal mass, calculus or hydronephrosis. Length: 9 x 5 x 5cm. Spleen: Normal size and echotexture. No focal lesions. Intraperitoneal fluid: None . IMPRESSION: Limited study due to patient's body habitus. Otherwise unremarkable study.
[2018-04-27] MEDS: HABITROL TD SCH (23:03)
[2018-04-27] MEDS: PERCOCET 5/325 PO PRN (23:03)
[2018-04-28] MEDS: DUONEB *Not for PRN Use IH SCH ×2 (00:32→09:19)
[2018-04-28] MEDS: BIDIL 20/37.5MG PO SCH ×4 (07:58→13:38)
--- NOTE | 2018-04-28 08:12 | Progress Note ---
Assessment and Plan Assessment and plan: --Chronic pain syndrome; patient complains of generalized body pains Reports tenderness on touching all over the body, request for more pain medications Continue supportive care --Acute kidney injury; secondary to ATN Gentle hydration, closely monitor renal function, avoid nephrotoxin Nephrology evaluation as needed cardiology following --History of coronary artery disease status post CABG Mitral valve repair in 2002, continue current cardiac medications Consider cardiology evaluation if needed --Peripheral vascular disease; patient complains of excruciating pain in both lower extremities Patient states she has appointment tomorrow to see vascular, request to see vascular today --Status post biventricular ICD; stable --Ischemic cardiomyopathy; ejection fraction 10-15% Continue current anti-failure medications --History of HIV; resume home antiretrovirals, supportive care, ID if needed --DVT prophylaxis; with Lovenox --Ongoing tobacco use; smoking cessation counseling done advised nicotine patch as needed Closely monitor the patient and adjust management as needed End of case reviewed with the patient and her nurse Hospitalist Physical - Constitutional Vitals: Temp Pulse Resp BP Pulse Ox 98.4 F 64 20 114/72 96 04/27/18 21:03 04/27/18 21:15 04/28/18 02:06 04/27/18 23:04 04/27/18 21:03 General appearance: Present: mild distress, well-nourished Results - Labs CBC & Chem 7: 04/26/18 02:05 04/26/18 02:05 Labs: Laboratory Last Values WBC 5.0 K/mm3 (4.5-11.0) 04/26/18 02:05 RBC 4.71 M/mm3 (3.65-5.03) 04/26/18 02:05 Hgb 14.9 gm/dl (10.1-14.3) H 04/26/18 02:05 Hct 43.9 % (30.3-42.9) H 04/26/18 02:05 MCV 93 fl (79-97) 04/26/18 02:05 MCH 32 pg (28-32) 04/26/18 02:05 MCHC 34 % (30-34) 04/26/18 02:05 RDW 14.5 % (13.2-15.2) 04/26/18 02:05 Plt Count 173 K/mm3 (140-440) 04/26/18 02:05 Lymph % (Auto) 34.5 % (13.4-35.0) 04/26/18 02:05 Tripp % (Auto) 7.2 % (0.0-7.3) 04/26/18 02:05 Eos % (Auto) 13.6 % (0.0-4.3) H 04/26/18 02:05 Baso % (Auto) 1.1 % (0.0-1.8) 04/26/18 02:05 Lymph # 1.7 K/mm3 (1.2-5.4) 04/26/18 02:05 Tripp # 0.4 K/mm3 (0.0-0.8) 04/26/18 02:05 Eos # 0.7 K/mm3 (0.0-0.4) H 04/26/18 02:05 Baso # 0.1 K/mm3 (0.0-0.1) 04/26/18 02:05 Seg Neutrophils % 43.6 % (40.0-70.0) 04/26/18 02:05 Seg Neutrophils # 2.2 K/mm3 (1.8-7.7) 04/26/18 02:05 Sodium 130 mmol/L (137-145) L 04/26/18 02:05 Potassium 4.5 mmol/L (3.6-5.0) 04/26/18 02:05 Chloride 85.2 mmol/L (98-107) L 04/26/18 02:05 Carbon Dioxide 34 mmol/L (22-30) H 04/26/18 02:05 Anion Gap 15 mmol/L 04/26/18 02:05 BUN 40 mg/dL (7-17) H 04/26/18 02:05 Creatinine 3.1 mg/dL (0.7-1.2) H 04/26/18 02:05 Estimated GFR 19 ml/min 04/26/18 02:05 BUN/Creatinine Ratio 13 % 04/26/18 02:05 Glucose 104 mg/dL (65-100) H 04/26/18 02:05 Lactic Acid 0.90 mmol/L (0.7-2.0) 04/26/18 10:46 Calcium 9.5 mg/dL (8.4-10.2) 04/26/18 02:05 Total Bilirubin 0.40 mg/dL (0.1-1.2) 04/26/18 02:05 AST 26 units/L (5-40) 04/26/18 02:05 ALT 29 units/L (7-56) 04/26/18 02:05 Alkaline Phosphatase 86 units/L (35-129) 04/26/18 02:05 NT-Pro-B Natriuret Pep 1216 pg/mL (0-900) H 04/26/18 02:50 Total Protein 6.1 g/dL (6.3-8.2) L 04/26/18 02:05 Albumin 3.9 g/dL (3.9-5) 04/26/18 02:05 Albumin/Globulin Ratio 1.8 % 04/26/18 02:05 Urine Color Yellow (Yellow) 04/26/18 03:52 Urine Turbidity Clear (Clear) 04/26/18 03:52 Urine pH 5.0 (5.0-7.0) 04/26/18 03:52 Ur Specific Dragoon 1.009 (1.003-1.030) 04/26/18 03:52 Urine Protein <15 mg/dl mg/dL (Negative) 04/26/18 03:52 Urine Glucose (UA) Neg mg/dL (Negative) 04/26/18 03:52 Urine Ketones Neg mg/dL (Negative) 04/26/18 03:52 Urine Blood Neg (Negative) 04/26/18 03:52 Urine Nitrite Neg (Negative) 04/26/18 03:52 Urine Bilirubin Neg (Negative) 04/26/18 03:52 Urine Urobilinogen < 2.0 mg/dL (<2.0) 04/26/18 03:52 Ur Leukocyte Esterase Tr (Negative) 04/26/18 03:52 Urine WBC (Auto) 2.0 /HPF (0.0-6.0) 04/26/18 03:52 Urine RBC (Auto) 1.0 /HPF (0.0-6.0) 04/26/18 03:52 U Epithel Cells (Auto) 1.0 /HPF (0-13.0) 04/26/18 03:52 Urine Bacteria (Auto) 1+ /HPF (Negative) 04/26/18 03:52
[2018-04-28 08:14] LABS: BUN/Creatinine Ratio 24; Blood Urea Nitrogen 24 mg/dL (7-17); Calcium 9.6 mg/dL (8.4-10.2); Hemolysis Index 5
[2018-04-28] MEDS ORDERED: MORPHINE IV PRN (08:30)
--- NOTE | 2018-04-28 08:42 | Consultation ---
History of Present Illness - Reason for Consult Consult date: 04/28/18 acute renal failure - History of Present Illness The patient is a 57 YO female with medical history significant for HTN, HLD, CAD , Ischemic Cardiomyopathy, S/p AICD, HIV and PVD who came to the ER with 2 days h/o upper abdominal pain. The pain was constant. She also reports having sensitive skin all over the abdomen and chest. She has been nauseated with decreased PO intake for the past 2-3 weeks. Patient denies any vomiting, diarrhea, fever, chills, rash, dizziness, weakness, dysuria, hematuria or syncope. Nephrology was consulted for creatinine of 3.1 yesterday. Today her creatinine has improved to 1. Past History Past Medical History: CAD, heart failure, HIV/AIDS, hypertension, hyperlipidemia , PVD, renal failure Past Surgical History: cholecystectomy, CABG (double bypass), Other (the ICD, removal of ovarian cyst) Social history: lives with family, smoking, full code. denies: alcohol abuse, prescription drug abuse Family history: hypertension, stroke Medications and Allergies Allergies Allergy/AdvReac Type Severity Reaction Status Date / Time Penicillins Allergy Unknown Verified 03/22/14 02:56 Home Medications Medication Instructions Recorded Confirmed Last Taken Type Allopurinol [Zyloprim] 100 mg PO QDAY #30 tablet 01/04/18 04/26/18 Unknown Rx Arformoterol Nebu [Brovana Nebu] 15 mcg IH Q12HRT #1 ml 01/04/18 04/26/18 Unknown Rx Aspirin [Aspirin TAB] 325 mg PO QDAY #30 tablet 01/04/18 04/26/18 Unknown Rx Budesonide [Pulmicort Respules] 0.5 mg IH Q12HRT #1 nebu 01/04/18 04/26/18 Unknown Rx Digoxin [Lanoxin] 0.25 mg PO DAILY #30 tablet 01/04/18 04/26/18 Unknown Rx ALBUTEROL Inhaler [ProAir HFA 2 puff IH QID PRN #2 can 01/06/18 04/26/18 Unknown Rx Inhaler] Emtricitab/Rilpiviri/Tenof Ala 1 each PO DAILY 04/08/18 04/26/18 04/08/18 21:31 History [Odefsey Tablet] AtorvaSTATin [Lipitor] 40 mg PO QHS tablet 04/11/18 04/26/18 Unknown Rx Carvedilol [Coreg] 12.5 mg PO BID tablet 04/11/18 04/26/18 Unknown Rx Furosemide [Lasix TAB] 60 mg PO QDAY tablet 04/11/18 04/26/18 Unknown Rx Isosorb Dinit/Hydralazine [Bidil 1 each PO Q8HR tablet 04/11/18 04/26/18 Unknown Rx 20/37.5MG] Lisinopril [Zestril TAB] 5 mg PO QDAY tablet 04/11/18 04/26/18 Unknown Rx Metolazone [Zaroxolyn] 2.5 mg PO QDAY #30 tablet 04/11/18 04/26/18 Unknown Rx Nicotine [Habitrol] 21 mg TD 2200 patch 04/11/18 04/26/18 Unknown Rx Polyethylene Glycol 3350 [Miralax 17 gm PO BID PRN #2 powd.pack 04/11/18 Unknown Rx 3350] Potassium Chloride [K-Dur] 10 meq PO QDAY tablet 04/11/18 04/26/18 Unknown Rx Sulfamethoxazole/Trimethoprim 1 each PO DAILY #30 tablet 04/11/18 04/26/18 Unknown Rx [Bactrim DS TAB] Active Meds: Active Medications Albuterol (Proventil) 2.5 mg IH Q4HRT PRN PRN Reason: Shortness Of Breath Albuterol/Ipratropium (Duoneb *Not For Prn Use*) 1 ampul IH TIDRT [facility] Last Admin: 04/28/18 00:32 Dose: Not Given Allopurinol (Zyloprim) 100 mg PO QDAY [facility] Last Admin: 04/27/18 09:52 Dose: 100 mg Arformoterol Tartrate (Brovana Nebu) 15 mcg IH Q12HRT [facility] Last Admin: 04/27/18 20:57 Dose: 15 mcg Aspirin (Aspirin) 325 mg PO QDAY [facility] Last Admin: 04/27/18 09:51 Dose: 325 mg Atorvastatin Calcium (Lipitor) 40 mg PO QHS [facility] Last Admin: 04/27/18 23:03 Dose: 40 mg Budesonide (Pulmicort) 0.5 mg IH Q12HRT [facility] Last Admin: 04/27/18 20:57 Dose: 0.5 mg Carvedilol (Coreg) 12.5 mg PO BID [facility] Last Admin: 04/27/18 23:02 Dose: 12.5 mg Digoxin (Lanoxin) 0.25 mg PO DAILY [facility] Last Admin: 04/27/18 10:35 Dose: Not Given Isosorbide Dinitrate/Hydralazine (Bidil 20/37.5mg) 1 each PO Q8HR [facility] Last Admin: 04/28/18 07:58 Dose: Not Given Miscellaneous Medication (Emtricitab/Rilpiviri/Tenof Ala [Odefsey Tablet]) 1 each PO DAILY [facility] Morphine Sulfate (Morphine) 1 mg IV Q8H PRN PRN Reason: Pain, Moderate (4-6) Nicotine (Habitrol) 21 mg TD 2200 [facility] Last Admin: 04/27/18 23:03 Dose: Not Given Oxycodone/Acetaminophen (Percocet 5/325) 1 tab PO Q6H PRN PRN Reason: Pain, Moderate (4-6) Last Admin: 04/27/18 23:03 Dose: 1 tab Potassium Chloride (K-Dur) 10 meq PO QDAY [facility] Last Admin: 04/27/18 09:51 Dose: 10 meq Trimethoprim/Sulfamethoxazole (Bactrim Ds) 1 each PO DAILY [facility] Last Admin: 04/27/18 09:51 Dose: Not Given Review of Systems Constitutional: no weight loss, no weight gain, no fever, no chills, no anorexia , no weakness, no poor appetite Ears, nose, mouth and throat: epistaxis Breasts: deferred Cardiovascular: dyspnea on exertion, high blood pressure, no chest pain, no orthopnea, no palpitations, no rapid/irregular heart beat, no edema, no syncope , no lightheadedness, no leg edema Respiratory: dyspnea on exertion, no cough Gastrointestinal: abdominal pain, nausea, no vomiting, no diarrhea, no melena Musculoskeletal: no redness of joints Integumentary: no rash, no wounds, no jaundice Neurological: no paralysis, no weakness, no confusion, no memory loss Endocrine: no weight change Exam - Vital Signs Vital signs: Vital Signs Pulse Ox 98 04/26/18 01:44 - General Appearance General appearance: well-developed, well-nourished, appears stated age, other ( no distress) EENT: ATNC, PERRL, mucous membranes moist, hearing intact, vision intact Neck: Present: neck supple, trachea midline Respiratory: Clear to Ascultation Heart: regular, S1S2, no murmurs Gastrointestinal: Present: normoactive bowel sounds. Absent: distended Integumentary: no rash, warm and dry Neurologic: no focal deficit, no asterixis, alert and oriented x3 Musculoskeletal: Present: other (no edema) Psychiatric: cooperative Results - Lab Results 04/26/18 02:05 04/28/18 07:13 Most recent lab results Calcium 9.6 mg/dL (8.4-10.2) 04/28/18 07:13 Magnesium 2.30 mg/dL (1.7-2.3) 04/28/18 07:13 - Image Kidney/bladder ultrasound: report reviewed Assessment and Plan 1. Acute kidney injury: YANELY is likely hemodynamically mediated in the setting of volume depletion. Renal function is better today. Encouraged to increase PO fluid intake. 2. Volume depletion: IV fluids as tolerated. 3. Hypotension: BP is better. 4. Cardiomyopathy.
[2018-04-28] MEDS: PERCOCET 5/325 PO PRN ×2 (09:05→16:05)
[2018-04-28] MEDS: BROVANA NEBU IH SCH ×2 (09:14→21:35)
[2018-04-28] MEDS: PULMICORT IH SCH ×2 (09:14→21:35)
[2018-04-28] MEDS: COREG PO SCH (09:58)
[2018-04-28] MEDS: K-DUR PO SCH (09:58)
[2018-04-28] MEDS: ZYLOPRIM PO SCH (09:58)
[2018-04-28] MEDS: ASPIRIN PO SCH (09:59)
[2018-04-28] MEDS: LANOXIN PO SCH (09:59)
[2018-04-28] MEDS: BACTRIM DS PO SCH (09:59)
--- NOTE | 2018-04-28 10:08 | Consultation ---
History of Present Illness Consult date: 04/28/18 Consult reason: other (cardiomyopathy) History of present illness: Patient is a 57-year-old woman with multiple medical problems. She has HIV disease, coronary artery disease status post coronary artery bypass surgery, ischemic cardiomyopathy, cardiac defibrillator in situ. She presented to the hospital at this time with plans of abdominal pain, diarrhea and other generalized constitutional symptoms. On presentation, laboratory values showed acute kidney failure with creatinine of 3.1. There was no specific cardiac symptoms of angina pectoris, no unusual shortness of breath and no edema. Chest x-ray was not performed. On telemetry strips, there is an AV sequential pacemaker rhythm. Cardiac consultation was requested for further follow-up and management of her coronary disease and ischemic cardiomyopathy. Past History Past Medical History: CAD, heart failure, HIV/AIDS, hypertension, hyperlipidemia , PVD, renal failure Past Surgical History: cholecystectomy, CABG (double bypass), Other (the ICD, removal of ovarian cyst) Social history: lives with family, smoking, full code. denies: alcohol abuse, prescription drug abuse Family history: hypertension, stroke Medications and Allergies Allergies Allergy/AdvReac Type Severity Reaction Status Date / Time Penicillins Allergy Unknown Verified 03/22/14 02:56 Home Medications Medication Instructions Recorded Confirmed Last Taken Type Allopurinol [Zyloprim] 100 mg PO QDAY #30 tablet 01/04/18 04/26/18 Unknown Rx Arformoterol Nebu [Brovana Nebu] 15 mcg IH Q12HRT #1 ml 01/04/18 04/26/18 Unknown Rx Aspirin [Aspirin TAB] 325 mg PO QDAY #30 tablet 01/04/18 04/26/18 Unknown Rx Budesonide [Pulmicort Respules] 0.5 mg IH Q12HRT #1 nebu 01/04/18 04/26/18 Unknown Rx Digoxin [Lanoxin] 0.25 mg PO DAILY #30 tablet 01/04/18 04/26/18 Unknown Rx ALBUTEROL Inhaler [ProAir HFA 2 puff IH QID PRN #2 can 01/06/18 04/26/18 Unknown Rx Inhaler] Emtricitab/Rilpiviri/Tenof Ala 1 each PO DAILY 04/08/18 04/26/18 04/08/18 21:31 History [Odefsey Tablet] Acetaminophen [Acetaminophen TAB] 650 mg PO Q4H PRN tablet 04/11/18 04/26/18 Unknown Rx AtorvaSTATin [Lipitor] 40 mg PO QHS tablet 04/11/18 04/26/18 Unknown Rx Carvedilol [Coreg] 12.5 mg PO BID tablet 04/11/18 04/26/18 Unknown Rx Furosemide [Lasix TAB] 60 mg PO QDAY tablet 04/11/18 04/26/18 Unknown Rx Ipratropium/Albuterol Sulfate 1 ampul IH Q6HRT ampul.neb 04/11/18 04/26/18 Unknown Rx [DUONEB *Not for PRN Use*] Isosorb Dinit/Hydralazine [Bidil 1 each PO Q8HR tablet 04/11/18 04/26/18 Unknown Rx 20/37.5MG] Lisinopril [Zestril TAB] 5 mg PO QDAY tablet 04/11/18 04/26/18 Unknown Rx Metolazone [Zaroxolyn] 2.5 mg PO QDAY #30 tablet 04/11/18 04/26/18 Unknown Rx Nicotine [Habitrol] 21 mg TD 2200 patch 04/11/18 04/26/18 Unknown Rx Polyethylene Glycol 3350 [Miralax 17 gm PO BID PRN #2 powd.pack 04/11/18 Unknown Rx 3350] Potassium Chloride [K-Dur] 10 meq PO QDAY tablet 04/11/18 04/26/18 Unknown Rx Sulfamethoxazole/Trimethoprim 1 each PO DAILY #30 tablet 04/11/18 04/26/18 Unknown Rx [Bactrim DS TAB] Active Meds: Active Medications Albuterol (Proventil) 2.5 mg IH Q4HRT PRN PRN Reason: Shortness Of Breath Allopurinol (Zyloprim) 100 mg PO QDAY [facility] Last Admin: 04/28/18 09:58 Dose: 100 mg Arformoterol Tartrate (Brovana Nebu) 15 mcg IH Q12HRT [facility] Last Admin: 04/28/18 09:14 Dose: 15 mcg Aspirin (Aspirin) 325 mg PO QDAY [facility] Last Admin: 04/28/18 09:59 Dose: 325 mg Atorvastatin Calcium (Lipitor) 40 mg PO QHS [facility] Last Admin: 04/27/18 23:03 Dose: 40 mg Budesonide (Pulmicort) 0.5 mg IH Q12HRT [facility] Last Admin: 04/28/18 09:14 Dose: 0.5 mg Carvedilol (Coreg) 12.5 mg PO BID [facility] Last Admin: 04/28/18 09:58 Dose: 12.5 mg Digoxin (Lanoxin) 0.25 mg PO DAILY [facility] Last Admin: 04/28/18 09:59 Dose: 0.25 mg Sodium Chloride (Nacl 0.45% 1000 Ml) 1,000 mls @ 125 mls/hr IV DIRECT [facility] Stop: 04/28/18 17:59 Isosorbide Dinitrate/Hydralazine (Bidil 20/37.5mg) 1 each PO Q8HR [facility] Last Admin: 04/28/18 09:57 Dose: Not Given Miscellaneous Medication (Emtricitab/Rilpiviri/Tenof Ala [Odefsey Tablet]) 1 each PO DAILY [facility] Morphine Sulfate (Morphine) 1 mg IV Q8H PRN PRN Reason: Pain, Moderate (4-6) Nicotine (Habitrol) 21 mg TD 2200 [facility] Last Admin: 04/27/18 23:03 Dose: Not Given Oxycodone/Acetaminophen (Percocet 5/325) 1 tab PO Q6H PRN PRN Reason: Pain, Moderate (4-6) Last Admin: 04/28/18 09:05 Dose: 1 tab Potassium Chloride (K-Dur) 10 meq PO QDAY [facility] Last Admin: 04/28/18 09:58 Dose: 10 meq Trimethoprim/Sulfamethoxazole (Bactrim Ds) 1 each PO DAILY [facility] Last Admin: 04/28/18 09:59 Dose: 1 each Review of Systems Cardiovascular: shortness of breath, no chest pain, no orthopnea, no palpitations, no rapid/irregular heart beat, no edema, no syncope, no lightheadedness Physical Examination Vital Signs Pulse Ox 98 04/26/18 01:44 General appearance: no acute distress HEENT: Positive: PERRL Neck: Positive: neck supple Cardiac: Positive: Irregularly Regular Lungs: Positive: Decreased Breath Sounds Neuro: Positive: Grossly Intact Abdomen: Positive: Soft Female genitourinary: deferred Skin: Positive: Clear Extremities: Absent: edema Results 04/26/18 02:05 06/07/18 07:13 Comprehensive Metabolic Panel 04/28/18 Range/Units 07:13 Sodium 145 D (137-145) mmol/L Potassium 4.4 (3.6-5.0) mmol/L Chloride 100.9 (98-107) mmol/L Carbon Dioxide 33 H (22-30) mmol/L BUN 24 H (7-17) mg/dL Creatinine 1.0 D (0.7-1.2) mg/dL Glucose 110 H (65-100) mg/dL Calcium 9.6 (8.4-10.2) mg/dL EKG interpretations Pacemaker: ventricular pacing w/capt, atrial pacing w/capture Assessment and Plan - Patient Problems (1) Ischemic cardiomyopathy Current Visit: Yes Status: Acute Plan to address problem: Patient has a history of coronary artery disease, ischemic cardiomyopathy and cardiac defibrillator in situ. There are no cardiac symptoms or active cardiac issues at the current time, recommend continue medical therapy including afterload reducing agents and beta blockers. Otherwise, conservative cardiac approach to current management.
[2018-04-28] MEDS ORDERED: NACL 0.45% 1000 ML 1,000 ML IV SCH (11:00)
--- NOTE | 2018-04-28 12:48 | Discharge Summary ---
Providers - Providers Date of Admission: 04/26/18 10:30 Date of discharge: 04/28/18 Attending physician: ROLANDO SUNG 04/27/18 09:59 Consult to Physician [CONS] Routine Comment: Consulting Provider: JAVI DANIELS Physician Instructions: Reason For Exam: PVD /LE pain 04/27/18 10:06 Consult to Physician [CONS] Routine Comment: Consulting Provider: CRISTIN BENDER Physician Instructions: Reason For Exam: ac on ch systolic CHF 04/27/18 18:08 Consult to Physician [CONS] Routine Comment: Consulting Provider: SILVERIO SR Physician Instructions: Reason For Exam: acute renal failure Primary care physician: OPEN CUT EXAMINER Hospitalization Reason for admission: abdominal pain/generalized body pains Condition: Stable Pertinent studies: CT abdomen and pelvis Abdominal ultrasound Hospital course: 57-year-old -[place] female patient with multiple medical problems with multiple admissions in the past was admitted through emergency room with abdominal pain of 2 days' duration Patient has history of chronic pain syndrome on pain medications Patient was admitted symptomatically managed Underwent abdominal CT which did not reveal any acute abnormalities However patient continued to have vague abdominal and generalized body pains Patient also underwent abdominal ultrasound which was negative for any acute abnormalities During the hospital stay patient also complains of peripheral vascular disease with excruciating pain of lower extremities, follows with vascular, and vascular evaluated on request advised to continue current management and follow in the office, Today patient is comfortable in no new complaints Vital signs stable, Physical examination prior to discharge is unremarkable Cardiology also evaluated the patient advised to continue current management In following the office for further evaluation and management if needed Discharge diagnosis: --Chronic pain syndrome --Acute kidney injury; secondary to ATN --History of coronary artery disease status post CABG --Peripheral vascular disease; --Status post biventricular ICD; stable --Ischemic cardiomyopathy; ejection fraction 10-15% --History of HIV; resume home antiretrovirals, supportive care, ID if needed --Ongoing tobacco use; smoking cessation counseling done Disposition: [id number]-03 [facility] Time spent for discharge: 32 min Core Measure Documentation - Palliative Care Palliative Care/ Comfort Measures: Not Applicable - Core Measures Any of the following diagnoses?: heart failure - Heart Failure Discharge Requirements SAL/ARB for LVSD if EF <40%: Yes Beta padilla at discharge: Yes Exam - Constitutional Vitals: Temp Pulse Resp BP Pulse Ox 98.4 F 63 18 112/70 96 04/28/18 12:30 04/28/18 12:30 04/28/18 12:30 04/28/18 12:30 04/28/18 12:30 General appearance: Present: no acute distress, well-nourished - EENT Eyes: Present: PERRL, EOM intact - Neck Neck: Present: supple, normal ROM - Respiratory Respiratory effort: normal Respiratory: bilateral: diminished, negative: rales, rhonchi, wheezing - Cardiovascular Rhythm: regular Heart Sounds: Present: S1 & S2 - Extremities Extremities: no ischemia, No edema - Abdominal General gastrointestinal: Present: soft, non-tender, non-distended, normal bowel sounds - Integumentary Integumentary: Present: clear, warm - Musculoskeletal Musculoskeletal: strength equal bilaterally - Psychiatric Psychiatric: appropriate mood/affect, cooperative - Neurologic Neurologic: CNII-XII intact, moves all extremities Plan Activity: advance as tolerated, fall precautions Diet: low salt, other (cardiac diet) Additional Instructions: If you have chest pain or shortness of breath, contact M.D. or go to emergency room. Smoking cessation counseling Follow up with: CRISTIN BENDER MD [Staff Physician] - 7 Days ANNE QUEZADA MD [Staff Physician] - 7 Days MARÍA ELENA ESPITIA MD [Primary Care Provider] - 3-5 Days JAVI DANIELS MD [Staff Physician] - 7 Days
[2018-04-28 16:15] VITALS: BP 116/68
--- NOTE | 2018-04-29 09:49 | Query- Abdominal Pain ---
Dear Juan R Date:__04/29/18 [employer]/CDS:___toy Phone#:_[phone] Exercise your independent professional judgment when responding to this query. Questions asked do not imply that a particular answer is desired or expected. We greatly appreciate your clarification on this issue. Clinical Documentation States: 57-year-old -[place] female patient with multiple medical problems well known to us service multiple admissions in the past the last one 2 weeks ago presented to the emergency room with upper abdominal pain of 2 days' duration, Patient reports the pain is intermittent sometimes colicky grates between 4-5/10 , denies nausea or vomiting or diarrhea. Taken from H&P note () on 04/26/18. Assessment and Plan: Chronic pain syndrome; patient complains of generalized body pains Acute kidney injury; secondary to ATN Ischemic cardiomyopathy; ejection fraction 10-15% Peripheral vascular disease; Clinical Findings Show: Abdominal ultrasound shows unremarkable study (done on 04/27/18) CT scan abdomen/pelvis done on 04/26/18 states no acute process is identified in abdomen Please specify the etiology of Abdominal Pain: [ ]Appendicitis, Acute [ ] Intestinal Obstruction [ ]Diverticulitis, Acute [ ] Uremia [ ]Pancreatitis, Acute [ ] Thoracic Aortic Aneurysm [ ]Peritonitis [ ] Urinary Tract Infection [ ]Ulcerative Colitis [ ] Pelvic Inflammatory Disease [ ]Cholecystitis [ ] Cystitis [ ]Cholangitis [ ] Pyelonephritis [ ]Viral Gastroenteritis [ ] Renal Stones [ ]Gastroenteritis, Bacterial [ ] Retroperitoneal Infection [ ]Gastritis [ ] Shingles [ ]Peritoneal Irritation [ ] Mesenteric Artery Occlusion [ ]Peritoneal Inflammation [ ] Trauma(please specify): _ [ ]Peritoneal Infection [ ] Irritable Bowel Syndrome [ ]Constipation [ ] Hernia [ ]GERD [ ] Cholelithiasis [ ]Peptic Ulcer [ ] Vascular Insufficiency of Intestine [ ]Diabetic Ketoacidosis [ ]Cancer [x ]Other: Chronic pain syndrome [ ]Unable to determine [ ]Comment/Explanation: Present on Admission: [ x] Yes (Y) [ ] Clinically undeterminable (W) [ ] No(N) Please also document response in your Progress Notes and/or Discharge Summary and indicate if the condition was present on admission. MTDD
== END 2018-04-28 20:34 | disposition home or self-care (01) | DRG 314 ==
LOC: ED 00:39 → 4A 10:30 → 3A 14:01
PROVIDERS: ADMIT Internal Medicine; ATTEND Internal Medicine
DX: I95.9 Hypotension, unspecified (principal); N17.0 Acute kidney failure with tubular necrosis; B20 Human immunodeficiency virus [HIV] disease; R10.9 Unspecified abdominal pain; I25.10 Atherosclerotic heart disease of native coronary artery without angina pectoris; I25.5 Ischemic cardiomyopathy; G89.4 Chronic pain syndrome; I11.0 Hypertensive heart disease with heart failure; I50.9 Heart failure, unspecified; I25.2 Old myocardial infarction; J44.9 Chronic obstructive pulmonary disease, unspecified; F17.210 Nicotine dependence, cigarettes, uncomplicated; E78.5 Hyperlipidemia, unspecified; I70.213 Atherosclerosis of native arteries of extremities with intermittent claudication, bilateral legs; Z79.82 Long term (current) use of aspirin; Z88.0 Allergy status to penicillin; Z95.1 Presence of aortocoronary bypass graft; Z90.49 Acquired absence of other specified parts of digestive tract
CPT/HCPCS: 36415; 74176; 76700; 80048; 80053; 80162; 81001; 82140; 83735; 83880; 85025; 94640; 96374; 99285; 99406; A9270-GY; J1940; J2270; J7040